=== PATIENT | male | born 1985 | race African-American/Black ===

== ENCOUNTER 2016-08-02 20:52 | Emergency (ER) | payer BC ==
--- NOTE | 2016-08-02 21:01 | ER Document Report ---
ED Medical Screen (RME) - General Stated Complaint: LEFT SHOULDER PAIN Time seen by provider: 21:00 Mode of Arrival: Ambulatory Information source: Patient Notes: 31-year-old male with worsening left shoulder pain that has been chronic for a year. Motrin prescribed by his PCP at [facility] is no longer relieving the pain.. He had surgery December 2014. No recent injury. I have greeted and performed a rapid initial assessment of this patient. A comprehensive ED assessment, evaluation of the patient, analysis of test results , and completion of the medical decision making process will be contacted by additional ED providers. TRAVEL OUTSIDE OF THE [place] IN LAST 30 DAYS: No - Related Data Allergies/Adverse Reactions: No Known Allergies Allergy (Verified 08/02/16 21:02) Past Medical History - Past Medical History Cardiac Medical History: Reports: Hx Hypertension Pulmonary Medical History: Endocrine Medical History: Musculoskeltal Medical History: Reports Hx Musculoskeletal Deformity, Reports Hx Musculoskeletal Trauma Past Surgical History: Reports: Hx Cholecystectomy - 2015, Hx Orthopedic Surgery - L shoulder labrum repair, Hx Urinary Tract Surgery - Vasectomy 2011 - Immunizations Immunizations up to date: Yes Hx Diphtheria, Pertussis, Tetanus Vaccination: Yes Physical Exam - Vital signs Vitals: Temp Pulse Resp BP Pulse Ox 98.7 F 95 18 165/83 H 99 08/02/16 20:56 08/02/16 20:56 08/02/16 20:56 08/02/16 20:56 08/02/16 20:56 Course - Vital Signs Vital signs: Temp Pulse Resp BP Pulse Ox 98.7 F 95 18 165/83 H 99 08/02/16 20:56 08/02/16 20:56 08/02/16 20:56 08/02/16 20:56 08/02/16 20:56
[2016-08-02] MEDS ORDERED: CYCLOBENZAPRINE HCL 10 MG TABLET PO ONE (22:16)
[2016-08-02] MEDS ORDERED: KETOROLAC TROMETHAMINE 60 MG/2 ML SDV IM ONE (22:16)
--- NOTE | 2016-08-02 22:20 | ER Document Report ---
HPI - HPI Patient complains to provider of: shoulder pain Pain Level: 5 Context: Patient is a 31-year-old male presents emergency Department complaining of bilateral shoulder pain. Patient states he has a history of bilateral pleural labrum had been previously repaired and he is following up with his orthopedic surgeon this week. Otherwise he is complaining mostly of bilateral shoulder pain and tense muscles. States he's been taking 800 mg of Motrin every 6 hours as well as taking 5 naproxen daily. States that even with this regimen he is still in severe pain and has not been able to work his full capacity. Otherwise patient denies any other past medical history - REPRODUCTIVE Reproductive: DENIES: : Past Medical History - General Information source: Patient - Social History Smoking Status: Never Smoker Family History: CVA, DM, Hypertension, Malignancy - Maternal aunt of cancer , unknown which type. - Past Medical History Cardiac Medical History: Reports: Hx Hypertension Pulmonary Medical History: Endocrine Medical History: Renal/ Medical History: Denies: Hx Peritoneal Dialysis Musculoskeltal Medical History: Reports Hx Musculoskeletal Deformity, Reports Hx Musculoskeletal Trauma Past Surgical History: Reports: Hx Cholecystectomy - 2015, Hx Orthopedic Surgery - L shoulder labrum repair, Hx Urinary Tract Surgery - Vasectomy 2011 - Immunizations Immunizations up to date: Yes Hx Diphtheria, Pertussis, Tetanus Vaccination: Yes Hx Pneumococcal Vaccination: 07/06/00 Vertical Provider Document - CONSTITUTIONAL Agree With Documented VS: Yes General Appearance: WD/WN, No Apparent Distress - INFECTION CONTROL TRAVEL OUTSIDE OF THE [place] IN LAST 30 DAYS: No - HEENT HEENT: Atraumatic, Normocephalic - NECK Neck: Normal Inspection, Other - Full range of motion no tenderness to palpation of the cervical spine. - RESPIRATORY O2 Sat by Pulse Oximetry: 99 - CARDIOVASCULAR Pulses: Normal: Radial Notes: Capillary refill less than 2 seconds in all upper extremity digits. - MUSCULOSKELETAL/EXTREMETIES Notes: Patient has full range of motion bilaterally but with evidence of clicking and popping in bilateral shoulder joints. Bilateral trapezius inflammation.. Tense to palpation in tenderness to deep palpation.. Insurance Assistant strength 5 out of 5 bilaterally. - NEURO Level of Consciousness: Awake, Alert, Appropriate Motor/Sensory: No Motor Deficit, No Sensory Deficit - DERM Integumentary: Warm, Dry, No Rash Course - Re-evaluation Re-evalutation: 01/28/17 22:34 Patient with evidence of foreign labrum of the left shoulder. Surrounded by inflamed muscle. Given prednisone taper and muscle relaxer can follow-up with his orthopedic surgeon this week. - Vital Signs Vital signs: Temp Pulse Resp BP Pulse Ox 98.7 F 95 18 165/83 H 99 08/02/16 20:56 08/02/16 20:56 08/02/16 20:56 08/02/16 20:56 08/02/16 20:56 Discharge - Discharge Clinical Impression: Shoulder pain, bilateral Qualifiers: Chronicity: chronic Qualified Code(s): M25.512 - Pain in left shoulder Condition: Good Disposition: HOME, SELF-CARE Instructions: Warm Packs ([facility]), Ice Packs ([facility]), Use of Vbby-Any-Czodxvo Ibuprofen ([facility]), Exercise Program for the Shoulder ([facility]) Additional Instructions: Please follow-up with your orthopedic surgeon this week. Prescriptions: Cyclobenzaprine HCl [Flexeril 10 mg Tablet] 10 mg PO TIDP PRN #15 tab PRN Reason: Meloxicam [Mobic 15 mg Tablet] 15 mg PO DAILY #30 tablet Prednisone 5 mg PO ASDIR #1 tab.ds.pk Forms: Elevated Blood Pressure
[2016-08-02 22:35] VITALS: BP 134/84
== END 2016-08-02 22:34 | disposition home or self-care (01) ==
LOC: ER 20:52
DX: M25.512 Pain in left shoulder (principal); I10 Essential (primary) hypertension; Z90.49 Acquired absence of other specified parts of digestive tract
CPT/HCPCS: 96372; 99283; J1885

== ENCOUNTER 2016-08-22 00:43 | Emergency (ER) | payer BC ==
--- NOTE | 2016-08-22 00:58 | ER Document Report ---
ED Medical Screen (RME) - General Stated Complaint: PAIN IN SCROTUM Time seen by provider: 00:56 Mode of Arrival: Ambulatory Information source: Patient Notes: 31-year-old male presents to ED for scrotal pain bilaterally. Said it started on the left side and is now to both sides. Denies any change in color states told him that they were larger. States he had a vasectomy for 5 years ago. States he sometimes goes to the gym and lifts weights that he has not lifted weights in at least 2 weeks before this started. I have greeted and performed a rapid initial assessment of this patient. A comprehensive ED assessment and evaluation of the patient, analysis of test results and completion of medical decision making process will be conducted by an additional ED providers. TRAVEL OUTSIDE OF THE [place] IN LAST 30 DAYS: No - Related Data Allergies/Adverse Reactions: No Known Allergies Allergy (Verified 08/02/16 21:02) Past Medical History - Past Medical History Cardiac Medical History: Reports: Hx Hypertension Pulmonary Medical History: Endocrine Medical History: Renal/ Medical History: Denies: Hx Peritoneal Dialysis Musculoskeltal Medical History: Reports Hx Musculoskeletal Deformity, Reports Hx Musculoskeletal Trauma Past Surgical History: Reports: Hx Cholecystectomy - 2015, Hx Orthopedic Surgery - L shoulder labrum repair, Hx Urinary Tract Surgery - Vasectomy 2011 - Immunizations Immunizations up to date: Yes Hx Diphtheria, Pertussis, Tetanus Vaccination: Yes
[2016-08-22 01:35] LABS: APPEARANCE,URINE CLEAR; BILIRUBIN,URINE NEGATIVE (NEGATIVE); GLUCOSE, URINE NEGATIVE (NEGATIVE); KETONES,URINE NEGATIVE (NEGATIVE); LEUKOCYTE ESTERASE,URINE NEGATIVE (NEGATIVE); NITRITE,URINE NEGATIVE (NEGATIVE); PROTEIN,URINE NEGATIVE (NEGATIVE); URINE SPECIFIC GRAVITY 1.029; UROBILINOGEN,URINE NEGATIVE mg/dL (<2.0)
[2016-08-22 03:11] LABS: CHLAM PCR NOT DETECTED (NOT DETECT)
[2016-08-22] MEDS ORDERED: IBUPROFEN 800 MG TABLET ONE (05:36)
[2016-08-22] MEDS ORDERED: IBUPROFEN 800 MG TABLET PO ONE (05:37)
[2016-08-22 05:51] VITALS: BP 139/87
--- NOTE | 2016-08-22 05:51 | ER Document Report ---
ED GI/ - General Chief Complaint: Testicular Pain Stated Complaint: TESTICULAR PAIN Time seen by provider: 05:51 Mode of Arrival: Ambulatory Information source: Patient Notes: 31-year-old male presents to ED for bilateral scrotal pain. He said it started on the left side and then now is on both sides. Patient states that has been for about a week and he has not lifted anyways for at least 2 weeks before the pain started. TRAVEL OUTSIDE OF THE [place] IN LAST 30 DAYS: No - HPI Patient complains to provider of: Testicular pain Onset: Last week - Bilateral Timing/Duration: Gradual Quality of pain: Achy, Sharp Severity at maximum: Severe Severity in ED: Moderate Pain Level: 3 Location: Left testicle, Right testicle Associated symptoms: denies: Fever, Urinary hesitancy, Urinary frequency, Urinary retention, Urinary urgency Exacerbated by: Movement, Walking Relieved by: Denies Similar symptoms previously: No Recently seen / treated by doctor: No - Related Data Allergies/Adverse Reactions: No Known Allergies Allergy (Verified 08/22/16 04:11) Past Medical History - General Information source: Patient - Social History Smoking Status: Current Every Day Smoker Frequency of alcohol use: None Drug Abuse: None Occupation: maintenance Lives with: Family Family History: CVA, DM, Hypertension, Malignancy - Maternal aunt of cancer , unknown which type. Patient has suicidal ideation: No Patient has homicidal ideation: No - Past Medical History Cardiac Medical History: Reports: Hx Hypertension Pulmonary Medical History: Reports: None EENT Medical History: Reports: None Neurological Medical History: Reports: None Endocrine Medical History: Reports: None Renal/ Medical History: Reports: None Malignancy Medical History: Reports None GI Medical History: Reports: None Musculoskeltal Medical History: Reports Hx Musculoskeletal Trauma Skin Medical History: Reports None Psychiatric Medical History: Reports: None Traumatic Medical History: Reports: None Infectious Medical History: Reports: None Past Surgical History: Reports: Hx Cholecystectomy - 2016, Hx Orthopedic Surgery - L shoulder labrum repair, Hx Urinary Tract Surgery - Vasectomy 2011 - Immunizations Immunizations up to date: Yes Hx Diphtheria, Pertussis, Tetanus Vaccination: Yes Hx Pneumococcal Vaccination: 07/06/00 Review of Systems - Review of Systems Constitutional: No symptoms reported EENT: No symptoms reported Cardiovascular: No symptoms reported Respiratory: No symptoms reported Gastrointestinal: No symptoms reported Genitourinary: No symptoms reported Male Genitourinary: Testicular pain. denies: Penile discharge Musculoskeletal: No symptoms reported Skin: No symptoms reported Hematologic/Lymphatic: No symptoms reported Neurological/Psychological: No symptoms reported Physical Exam - Vital signs Vitals: Temp Pulse BP Pulse Ox 97.7 F 73 155/95 H 100 08/22/16 00:57 08/22/16 00:57 08/22/16 00:57 08/22/16 00:57 Interpretation: Hypertensive - Patient has a history of high blood pressure instructed him to follow-up with his primary doctor for this elevated blood pressure - General General appearance: Appears well, Alert - HEENT Head: Normocephalic, Atraumatic Eyes: Normal Pupils: PERRL - Respiratory Respiratory status: No respiratory distress Chest status: Nontender Breath sounds: Normal Chest palpation: Normal - Cardiovascular Rhythm: Regular Heart sounds: Normal auscultation Murmur: No - Abdominal Inspection: Normal Distension: No distension Bowel sounds: Normal Tenderness: Nontender Organomegaly: No organomegaly - Genitourinary Tenderness: Nontender Cremasteric reflex: Normal Scrotum: Normal. No: Swelling, Redness, Hot to touch - Back Back: Normal, Nontender - Extremities General upper extremity: Normal inspection, Nontender, Normal color, Normal ROM , Normal temperature General lower extremity: Normal inspection, Nontender, Normal color, Normal ROM , Normal temperature, Normal weight bearing. No: Yomi's sign - Neurological Neuro grossly intact: Yes Cognition: Normal Orientation: AAOx4 [place] Coma Scale Eye Opening: Spontaneous [place] Coma Scale Verbal: Oriented Mariama Coma Scale Motor: Obeys Commands [place] Coma Scale Total: 15 Speech: Normal Motor strength normal: LUE, RUE, LLE, RLE Sensory: Normal - Psychological Associated symptoms: Normal affect, Normal mood - Skin Skin Temperature: Warm Skin Moisture: Dry Skin Color: Normal Course - Re-evaluation Re-evalutation: 08/22/16 06:[address] Renteria as well as assessment. He stated this long as there is no redness or warmth in the testicles are not hard and firm, we can discharge him with negative urine and negative ultrasound. Discussed ultrasound with patient we'll discharge patient home to follow-up with urology. Name and number for urology given to patient to call and make a follow-up appointment. - Vital Signs Vital signs: Temp Pulse Resp BP Pulse Ox 97.9 F 67 16 139/87 H 96 08/22/16 05:51 08/22/16 05:51 08/22/16 05:51 08/22/16 05:51 08/22/16 05:51 - Diagnostic Test Radiology reviewed: Image reviewed, Reports reviewed Discharge - Discharge Clinical Impression: Testicular pain, unspecified Condition: Stable Disposition: HOME, SELF-CARE Instructions: Family Physicians / Practices Additional Instructions: Testicular Pain Sometimes we can't prove the exact cause of testicle pain. Pain in the testicle can be caused by many different problems, including viral infections of the testicle, urinary tract infection, kidney stones, inflammation of the epididymis (the sac behind the testicle), hernia, dilated veins in the scrotum, or subtle injury. The most serious causes of testicular pain are tumor or twisting of the testicle. An ultrasound exam often shows what's wrong. When the initial testing doesn 't show a cause for the pain, we usually refer to a urologist. Rest. Gentle warmth may help with symptoms. It's usually helpful to wear underwear that gives good support to the testicles ("briefs" instead of "boxers "). Call the doctor or return if there is sudden worsening of pain, fever, vomiting, testicle swelling, or discoloration of the scrotum. Ibuprofen Ibuprofen is an excellent, safe drug for pain control. In addition, it has potent antiinflammatory effects which are beneficial, especially in the treatment of injuries, arthritis, or tendonitis. It's best to take ibuprofen with food. Persons with ulcer disease or allergy to aspirin should notify their physician of this before taking ibuprofen. Take the medication exactly as prescribed. Don't take additional doses unless instructed to do so by your doctor. If you develop wheezing, shortness of breath, hives, faintness, stomach pain, vomiting, or dark black stools, return for re-evaluation at once. FOLLOW-UP CARE: If you have been referred to a physician for follow-up care, call the physician s office for an appointment as you were instructed or within the next two days. If you experience worsening or a significant change in your symptoms, notify the physician immediately or return to the Emergency Department at any time for re-evaluation. Prescriptions: Ibuprofen 800 mg PO Q8HP PRN #20 tablet PRN Reason: Forms: Elevated Blood Pressure, Smoking Cessation Education, Return to Work Referrals: CADY SANCHEZ [NO LOCAL MD] - Follow up as needed
== END 2016-08-22 06:09 | disposition home or self-care (01) ==
LOC: ER 00:43
DX: N50.812 Left testicular pain (principal); N50.811 Right testicular pain; I10 Essential (primary) hypertension; F17.200 Nicotine dependence, unspecified, uncomplicated
CPT/HCPCS: 76870; 81001; 87491; 87591; 93976; 99284

== ENCOUNTER 2016-09-07 16:28 | Emergency (ER) | payer BC ==
--- NOTE | 2016-09-07 16:33 | ER Document Report ---
ED Medical Screen (RME) - General Stated Complaint: CHEST AND HEAD PAIN Time seen by provider: 16:33 Mode of Arrival: Ambulatory Notes: Patient states he has been out of his hypertension medicine for about 1 month. Primary care provider would not refill until he had lab work done. Patient states he has had this lab work done, but does not have the results. Has been having intermittent chest pain for about the last 2 weeks, has a headache, pain radiates down left arm. Patient complains of nausea and fatigue. Patient denies shortness of breath. I have greeted and performed a rapid initial assessment of this patient. A comprehensive ED assessment and evaluation of the patient, analysis of test results and completion of the medical decision making process will be conducted by additional ED providers. TRAVEL OUTSIDE OF THE [place] IN LAST 30 DAYS: No - Related Data Allergies/Adverse Reactions: No Known Allergies Allergy (Verified 09/07/16 16:41) Past Medical History - Past Medical History Cardiac Medical History: Reports: Hx Hypertension Pulmonary Medical History: Endocrine Medical History: Renal/ Medical History: Denies: Hx Peritoneal Dialysis Musculoskeltal Medical History: Reports Hx Musculoskeletal Deformity, Reports Hx Musculoskeletal Trauma Past Surgical History: Reports: Hx Cholecystectomy - 2015, Hx Orthopedic Surgery - L shoulder labrum repair, Hx Urinary Tract Surgery - Vasectomy 2011 - Immunizations Immunizations up to date: Yes Hx Diphtheria, Pertussis, Tetanus Vaccination: Yes Physical Exam - Respiratory Respiratory status: No respiratory distress Breath sounds: Normal - Cardiovascular Rhythm: Regular Heart sounds: Normal auscultation
[2016-09-07] MEDS ORDERED: ASPIRIN 81 MG TABLET, CHEWABLE PO ONE (16:44)
[2016-09-07 17:33] LABS: ABSOLUTE LYMPHOCYTES (AUTO) 2.4 10^3/uL (0.5-4.7); ABSOLUTE MONOCYTES (AUTO) 0.5 10^3/uL (0.1-1.4); ABSOLUTE NEUT (AUTO) 4.9 10^3/uL (1.7-8.2); BASOPHILS % (AUTO) 0.3 % (0-2); EOSINOPHILS % (AUTO) 0.3 % (0-6); HEMATOCRIT 40.1 % (37.9-51.0); HEMOGLOBIN 13.3 g/dL (13.5-17.0); HGB HCT DIFFERENCE -0.2; MEAN CORPUSCULAR HEMOGLOBIN 30.6 pg (27.0-33.4); MEAN CORPUSCULAR HGB CONC 33.2 g/dL (32.0-36.0); MEAN CORPUSCULAR VOLUME 92 fl (80-97); MONOCYTES % (AUTO) 5.8 % (3-13); RED BLOOD COUNT 4.35 10^6/uL (4.35-5.55); RED CELL DISTRIBUTION WIDTH 13.6 % (11.5-14.0); SEGMENTED NEUTROPHILS % (AUTO) 62.6 % (42-78); WHITE BLOOD COUNT 7.8 10^3/uL (4.0-10.5)
[2016-09-07 17:47] LABS: ALANINE AMINOTRANSFERASE 27 U/L (21-72); ALBUMIN 4.2 g/dL (3.5-5.0); ALKALINE PHOSPHATASE 59 U/L (38-126); ANION GAP 12 (5-19); ASPARTATE AMINO TRANSFERASE 22 U/L (17-59); BILIRUBIN,TOTAL 0.3 mg/dL (0.2-1.3); BLOOD UREA NITROGEN 19 mg/dL (7-20); CALCIUM 10.1 mg/dL (8.4-10.2); CARBON DIOXIDE 25 mmol/L (22-30); CHLORIDE 104 mmol/L (98-107); CREATINE KINASE 199 U/L (55-170); CREATININE RESULT 1.18 mg/dL (0.52-1.25); GLUCOSE 99 mg/dL (75-110); POTASSIUM 4.4 mmol/L (3.6-5.0); SODIUM 141.3 mmol/L (137-145); TOTAL PROTEIN 7.3 g/dL (6.3-8.2)
[2016-09-07 17:58] LABS: CREATINE KINASE MB 0.51 ng/mL (<4.55)
[2016-09-07 18:01] LABS: TROPONIN I < 0.012 ng/mL
[2016-09-07] MEDS ORDERED: LISINOPRIL 10 MG TABLET PO ONE (18:39)
--- NOTE | 2016-09-07 18:42 | ER Document Report ---
ED General - General Chief Complaint: Chest Pain Stated Complaint: CHEST AND HEAD PAIN Time seen by provider: 18:40 Mode of Arrival: Ambulatory Information source: Patient TRAVEL OUTSIDE OF THE [place] IN LAST 30 DAYS: No - HPI Patient complains to provider of: headache, neck pain, arm pain, chest pain, elevated blood pressure Onset: Other - 2-3 days Onset/Duration: Gradual, Waxing and waning Quality of pain: Achy Severity: Mild Pain Level: 1 Associated symptoms: Body/muscle aches, Chest pain, Headache Exacerbated by: Denies Relieved by: Denies Similar symptoms previously: Yes Recently seen / treated by doctor: No Notes: Patient is a 31-year-old male with a history of hypertension who is been off of his medication for approximately one month as he ran out, who presents to the emergency room complaining of elevated blood pressure is noted at home, with body aches including headache, neck ache, arm pain bilaterally, chest pain, he denies any cough, cold or congestion, no difficulty breathing, no nausea, vomiting or diarrhea - Related Data Allergies/Adverse Reactions: No Known Allergies Allergy (Verified 09/07/16 16:41) Past Medical History - General Information source: Patient - Social History Smoking Status: Unknown if Ever Smoked Chew tobacco use (# tins/day): No Frequency of alcohol use: None Drug Abuse: None Family History: CVA, DM, Hypertension, Malignancy - Maternal aunt of cancer , unknown which type. Patient has suicidal ideation: No Patient has homicidal ideation: No - Past Medical History Cardiac Medical History: Reports: Hx Hypertension Pulmonary Medical History: Endocrine Medical History: Renal/ Medical History: Denies: Hx Peritoneal Dialysis Musculoskeltal Medical History: Reports Hx Musculoskeletal Deformity, Reports Hx Musculoskeletal Trauma Past Surgical History: Reports: Hx Cholecystectomy - 2015, Hx Orthopedic Surgery - L shoulder labrum repair, Hx Urinary Tract Surgery - Vasectomy 2011 - Immunizations Immunizations up to date: Yes Hx Diphtheria, Pertussis, Tetanus Vaccination: Yes Hx Pneumococcal Vaccination: 07/06/00 Review of Systems - Review of Systems Constitutional: No symptoms reported EENT: No symptoms reported Cardiovascular: See HPI Respiratory: No symptoms reported Gastrointestinal: No symptoms reported Genitourinary: No symptoms reported Male Genitourinary: No symptoms reported Musculoskeletal: See HPI Skin: No symptoms reported Hematologic/Lymphatic: No symptoms reported Neurological/Psychological: Headaches -: Yes All other systems reviewed and negative Physical Exam - Vital signs Vitals: Temp Pulse Resp BP Pulse Ox 98.2 F 83 17 169/83 H 99 09/07/16 16:42 09/07/16 16:42 09/07/16 16:42 09/07/16 16:42 09/07/16 16:42 Interpretation: Normal - General General appearance: Appears well, Alert - HEENT Head: Normocephalic, Atraumatic Eyes: Normal Pupils: PERRL - Respiratory Respiratory status: No respiratory distress Chest status: Nontender Breath sounds: Normal Chest palpation: Normal - Cardiovascular Rhythm: Regular Heart sounds: Normal auscultation Murmur: No - Abdominal Inspection: Normal Distension: No distension Bowel sounds: Normal Tenderness: Nontender Organomegaly: No organomegaly - Back Back: Normal, Nontender - Extremities General upper extremity: Normal inspection, Nontender, Normal color, Normal ROM , Normal temperature General lower extremity: Normal inspection, Nontender, Normal color, Normal ROM , Normal temperature, Normal weight bearing. No: Yomi's sign - Neurological Neuro grossly intact: Yes Cognition: Normal Orientation: AAOx4 [place] Coma Scale Eye Opening: Spontaneous Mariama Coma Scale Verbal: Oriented Mariama Coma Scale Motor: Obeys Commands Mariama Coma Scale Total: 15 Speech: Normal Motor strength normal: LUE, RUE, LLE, RLE Sensory: Normal - Psychological Associated symptoms: Normal affect, Normal mood - Skin Skin Temperature: Warm Skin Moisture: Dry Skin Color: Normal Course - Re-evaluation Re-evalutation: 09/08/16 04:07 Lab and physical exam findings unremarkable, symptoms likely related to hypertension as patient recently ran out of his medication, he was given a prescription for this medication and advised to follow-up with his primary care provider or return if symptoms worsen, patient acknowledges understanding and agreement with this plan - Vital Signs Vital signs: Temp Pulse Resp BP Pulse Ox 98.2 F 83 15 147/85 H 98 09/07/16 16:42 09/07/16 16:42 09/07/16 18:52 09/07/16 18:52 09/07/16 18:52 - Laboratory Result Diagrams: 09/07/16 17:00 09/07/16 17:00 Laboratory results interpreted by me: 09/07/16 09/07/16 17:00 17:00 Hgb 13.3 L Creatine Kinase 199 H - Diagnostic Test Radiology reviewed: Image reviewed, Reports reviewed - EKG Interpretation by Me EKG shows normal: Sinus rhythm Rate: Normal Rhythm: NSR Discharge - Discharge Clinical Impression: Hypertension Qualifiers: Hypertension type: essential hypertension Qualified Code(s): I10 - Essential ( primary) hypertension Headache Qualifiers: Headache type: unspecified Headache chronicity pattern: acute headache Intractability: not intractable Qualified Code(s): R51 - Headache Chest pain Qualifiers: Chest pain type: other chest pain Qualified Code(s): R07.89 - Other chest pain Condition: Stable Disposition: HOME, SELF-CARE Instructions: Chest Wall Pain ([facility]), High Blood Pressure ([facility]), High Blood Pressure, Requiring Treatment ([facility]) Additional Instructions: Follow up with your primary care provider in one to 2 days. Return to the emergency room immediately if symptoms worsen or any additional concerns. Prescriptions: Lisinopril 10 mg PO DAILY #30 tablet Referrals: KELLY PRITCHETT PA [Primary Care Provider] - Follow up as needed
[2016-09-07] MEDS ORDERED: HYDROCODONE/ACETAMINOPHEN 5-325 MG 6 TAB/DSPK PO PRN (18:44)
--- NOTE | 2016-09-07 18:47 | EKG REPORT ---
SEVERITY:- NORMAL ECG - SINUS RHYTHM : Confirmed by: Ruy Garber MD 07-Sep-2016 18:46:17
[2016-09-07 18:59] VITALS: BP 147/85
== END 2016-09-07 18:59 | disposition home or self-care (01) ==
LOC: ER 16:28
DX: R07.89 Other chest pain (principal); R51 Headache; M79.1 Myalgia; I10 Essential (primary) hypertension; Z90.49 Acquired absence of other specified parts of digestive tract; Z98.52 Vasectomy status
CPT/HCPCS: 36415; 71010; 80053; 82550; 82553; 84484; 85025; 93005; 93010; 99285

== ENCOUNTER 2016-10-18 14:44 | Emergency (ER) | payer BC ==
[2016-10-18] MEDS ORDERED: TRAMADOL HCL 50 MG TABLET PO ONE (15:56)
[2016-10-18] MEDS ORDERED: ACETAMINOPHEN 325 MG TABLET PO ONE (15:56)
[2016-10-18] MEDS ORDERED: ONDANSETRON 4 MG TAB.RAPDIS PO ONE (15:56)
--- NOTE | 2016-10-18 15:57 | ER Document Report ---
HPI - HPI Patient complains to provider of: strained his back yesterday Onset: Yesterday Onset/Duration: Gradual Quality of pain: Achy, Throbbing Pain Level: 5 Context: 31-year-old male strained his low back yesterday while at work. He was bent over fixing some hinges straightened up and twisted causing a popping sensation in his low back. Today he went out and weed whacked in the yard trying to keep the area loose but when he laid down on the floor after he was done doing that he was crying out in pain and wasn't able to get up without help. No saddle anesthesia. The pain radiates to his posterior bilateral legs to the knees. Associated Symptoms: None Exacerbated by: Movement Relieved by: Denies Similar symptoms previously: No Recently seen / treated by doctor: No - ROS ROS below otherwise negative: Yes Systems Reviewed and Negative: Yes All other systems reviewed and negative - REPRODUCTIVE Reproductive: DENIES: : - DERM Skin Color: Normal Past Medical History - General Information source: Patient - Social History Smoking Status: Never Smoker Chew tobacco use (# tins/day): No Frequency of alcohol use: None Drug Abuse: None Lives with: Family Family History: CVA, DM, Hypertension, Malignancy - Maternal aunt of cancer , unknown which type. - Past Medical History Cardiac Medical History: Reports: Hx Hypertension Pulmonary Medical History: Endocrine Medical History: Renal/ Medical History: Denies: Hx Peritoneal Dialysis Musculoskeltal Medical History: Reports Hx Musculoskeletal Deformity, Reports Hx Musculoskeletal Trauma Past Surgical History: Reports: Hx Cholecystectomy - 2015, Hx Orthopedic Surgery - L shoulder labrum repair, Hx Urinary Tract Surgery - Vasectomy 2011 - Immunizations Immunizations up to date: Yes Hx Diphtheria, Pertussis, Tetanus Vaccination: Yes Hx Pneumococcal Vaccination: 07/06/00 Vertical Provider Document - CONSTITUTIONAL Agree With Documented VS: Yes Exam Limitations: No Limitations - INFECTION CONTROL TRAVEL OUTSIDE OF THE [place] IN LAST 30 DAYS: No - HEENT HEENT: Atraumatic, Normocephalic - NECK Neck: Supple - RESPIRATORY Respiratory: Breath Sounds Normal, No Respiratory Distress O2 Sat by Pulse Oximetry: 100 - CARDIOVASCULAR Cardiovascular: Regular Rate, Regular Rhythm - GI/ABDOMEN Gastrointestinal: Abdomen Soft, Abdomen Non-Tender - BACK Back: Normal Inspection Notes: Tender over bilateral lumbar muscles - MUSCULOSKELETAL/EXTREMETIES Musculoskeletal/Extremeties: MAEW, FROM, Non-Tender - NEURO Level of Consciousness: Awake, Alert, Appropriate Motor/Sensory: No Motor Deficit, No Sensory Deficit Deep Tendon Reflexes: 2+ - 2+ bilateral ankle and patellar - DERM Integumentary: Warm, Dry, No Rash Notes: Able to walk and move in the bed. Course - Vital Signs Vital signs: Temp Pulse Resp BP Pulse Ox 98.3 F 97 16 145/87 H 100 10/18/16 14:48 10/18/16 14:48 10/18/16 14:48 10/18/16 14:48 10/18/16 14:48 Discharge - Discharge Clinical Impression: Low back strain Qualifiers: Encounter type: initial encounter Qualified Code(s): S39.012A - Strain of muscle, fascia and tendon of lower back, initial encounter Condition: Good Disposition: HOME, SELF-CARE Instructions: Warm Packs ([facility]), Muscle Strain ([facility]), Low Back Pain ([facility]), Muscle Relaxers ([facility]), Ultram ([facility]) Additional Instructions: warm compress gentle stretching to er if symptoms worsen Please complete the patient satisfaction survey if you get one, and return it.. If you do not receive a survey, then you can go to the [facility] website, [email or web address] and place your comments about your very good care. Thank you very much. It was a pleasure being your medical provider today. Prescriptions: Cyclobenzaprine HCl [Flexeril 10 Mg Tablet] 10 mg PO TIDP PRN #20 tablet PRN Reason: Tramadol HCl [Ultram 50 mg Tablet] 50 mg PO ASDIR PRN #20 tablet PRN Reason: Forms: Return to Work Referrals: KELLY PRITCHETT PA [Primary Care Provider] - Follow up as needed
[2016-10-18 16:15] VITALS: BP 138/72
== END 2016-10-18 16:16 | disposition home or self-care (01) ==
LOC: ER 14:44
DX: S39.012A Strain of muscle, fascia and tendon of lower back, initial encounter (principal); X58.XXXA Exposure to other specified factors, initial encounter; Y99.0 Civilian activity done for income or pay; I10 Essential (primary) hypertension; Z98.52 Vasectomy status; Z90.49 Acquired absence of other specified parts of digestive tract
CPT/HCPCS: 99283; S0119

== ENCOUNTER 2016-11-02 09:12 | Emergency (ER) | payer BC ==
[2016-11-02] MEDS ORDERED: IBUPROFEN 800 MG TABLET PO ONE (10:30)
[2016-11-02 11:17] LABS: APPEARANCE,URINE CLEAR; BILIRUBIN,URINE NEGATIVE (NEGATIVE); GLUCOSE, URINE NEGATIVE (NEGATIVE); KETONES,URINE NEGATIVE (NEGATIVE); LEUKOCYTE ESTERASE,URINE NEGATIVE (NEGATIVE); NITRITE,URINE NEGATIVE (NEGATIVE); PROTEIN,URINE NEGATIVE (NEGATIVE); URINE SPECIFIC GRAVITY 1.027; UROBILINOGEN,URINE NEGATIVE mg/dL (<2.0)
--- NOTE | 2016-11-02 11:22 | ER Document Report ---
HPI - HPI Patient complains to provider of: low back pain Onset: Other - thursday Onset/Duration: Persistent Quality of pain: Achy Severity: Severe Pain Level: 5 Context: Patient presents emergency department with complaints of back pain since Thursday. Patient reports he is not sure what he did, he reports he was playing in the pool this past week with his kids can a long vacation. He complains of low back pain that radiates down his buttocks. Reports history of back pain in the past comes and goes. Denies other symptoms such as fever vomiting diarrhea. Denies urinary or bowel incontinence or retention. Denies numbness tingling. He reports that he does feel little uncomfortable when he voids. Associated Symptoms: None Exacerbated by: Denies Relieved by: Denies Similar symptoms previously: Yes Recently seen / treated by doctor: No - REPRODUCTIVE Reproductive: DENIES: : - DERM Skin Color: Normal Past Medical History - General Information source: Patient - Social History Smoking Status: Former Smoker Cigarette use (# per day): No Chew tobacco use (# tins/day): No Frequency of alcohol use: None Drug Abuse: None Lives with: Family Family History: CVA, DM, Hypertension, Malignancy - Maternal aunt of cancer , unknown which type. Patient has suicidal ideation: No Patient has homicidal ideation: No - Past Medical History Cardiac Medical History: Reports: Hx Hypertension Pulmonary Medical History: Endocrine Medical History: Renal/ Medical History: Denies: Hx Peritoneal Dialysis Musculoskeltal Medical History: Reports Hx Musculoskeletal Deformity, Reports Hx Musculoskeletal Trauma Past Surgical History: Reports: Hx Cholecystectomy - 2015, Hx Orthopedic Surgery - L shoulder labrum repair, Hx Urinary Tract Surgery - Vasectomy 2011 - Immunizations Immunizations up to date: Yes Hx Diphtheria, Pertussis, Tetanus Vaccination: Yes Hx Pneumococcal Vaccination: 07/06/00 Vertical Provider Document - CONSTITUTIONAL Agree With Documented VS: Yes Exam Limitations: No Limitations General Appearance: WD/WN, No Apparent Distress - INFECTION CONTROL TRAVEL OUTSIDE OF THE [place] IN LAST 30 DAYS: No - HEENT HEENT: Atraumatic, Normocephalic - NECK Neck: Normal Inspection, Supple. negative: Lymphadenopathy-Left, Lymphadenopathy-Right - RESPIRATORY Respiratory: Breath Sounds Normal, No Respiratory Distress O2 Sat by Pulse Oximetry: 99 - CARDIOVASCULAR Cardiovascular: Regular Rate - GI/ABDOMEN Gastrointestinal: Abdomen Soft, Abdomen Non-Tender - BACK Back: Normal Inspection - No obvious distress deformity no swelling to distal movement and sensation no weakness good reflexes - MUSCULOSKELETAL/EXTREMETIES Musculoskeletal/Extremeties: MAEW, FROM, Non-Tender - NEURO Level of Consciousness: Awake, Alert, Appropriate Motor/Sensory: No Motor Deficit - DERM Integumentary: Warm, Dry Course - Re-evaluation Re-evalutation: 11/02/16 11:45 UA unremarkable. Patient instructed on negative urine. Patient instructed on naproxen and muscle relaxers for the back pain. He was instructed follow up with primary care provider for recheck within 1 week. Patient verbalized understanding to all instructions. Declined a work note. Patient seemed satisfied. - Vital Signs Vital signs: Temp Pulse Resp BP Pulse Ox 98.5 F 88 20 124/76 99 11/02/16 09:19 11/02/16 09:19 11/02/16 09:19 11/02/16 09:19 11/02/16 09:19 Discharge - Discharge Clinical Impression: Low back pain, Elevated blood pressure reading Condition: Stable Disposition: HOME, SELF-CARE Instructions: Ice Packs ([facility]), Warm Packs ([facility]), Low Back Pain ([facility]), Muscle Relaxers ([facility]), Anti-Inflammatory Medication ([facility]), Family Physicians / Practices Additional Instructions: *You have been evaluated for back pain *Take medication as prescribed *Rest/alternate ice packs and warm packs, 20 minutes off, 20 minutes on *Follow up with a primary care provider within one week for recheck *Return to ED for worsening condition, changes, needs Monitor your blood pressure. Your blood pressure was elevated today. This may be because you were anxious, in pain or because you need medication. It is important to follow up with your primary care provider for full evaluation. Prescriptions: Cyclobenzaprine HCl [Flexeril 10 Mg Tablet] 10 mg PO TID #30 tablet Naproxen 500 mg PO BID #20 tablet Forms: Elevated Blood Pressure Referrals: KELLY PRITCHETT PA [Primary Care Provider] - Follow up in 3-5 days
[2016-11-02 11:59] VITALS: BP 133/76
== END 2016-11-02 11:59 | disposition home or self-care (01) ==
LOC: ER 09:12
DX: M54.5 Low back pain (principal); R03.0 Elevated blood-pressure reading, without diagnosis of hypertension; I10 Essential (primary) hypertension; Z87.891 Personal history of nicotine dependence; Z90.49 Acquired absence of other specified parts of digestive tract; Z98.52 Vasectomy status
CPT/HCPCS: 81001; 99283

== ENCOUNTER 2016-11-14 01:41 | Emergency (ER) | payer BC ==
[2016-11-14] MEDS ORDERED: ASPIRIN 81 MG TABLET, CHEWABLE PO ONE (02:04)
[2016-11-14 02:34] LABS: ABSOLUTE LYMPHOCYTES (AUTO) 3.1 10^3/uL (0.5-4.7); ABSOLUTE MONOCYTES (AUTO) 0.8 10^3/uL (0.1-1.4); ABSOLUTE NEUT (AUTO) 5.3 10^3/uL (1.7-8.2); BASOPHILS % (AUTO) 0.3 % (0-2); EOSINOPHILS % (AUTO) 0.4 % (0-6); HEMATOCRIT 39.2 % (37.9-51.0); HEMOGLOBIN 13.2 g/dL (13.5-17.0); HGB HCT DIFFERENCE 0.4; LYMPHOCYTES % (AUTO) 33.7 % (13-45); MEAN CORPUSCULAR HEMOGLOBIN 30.8 pg (27.0-33.4); MEAN CORPUSCULAR HGB CONC 33.7 g/dL (32.0-36.0); MEAN CORPUSCULAR VOLUME 91 fl (80-97); MONOCYTES % (AUTO) 8.3 % (3-13); RED CELL DISTRIBUTION WIDTH 13.7 % (11.5-14.0); SEGMENTED NEUTROPHILS % (AUTO) 57.3 % (42-78); WHITE BLOOD COUNT 9.3 10^3/uL (4.0-10.5)
[2016-11-14 02:45] LABS: ALANINE AMINOTRANSFERASE 43 U/L (21-72); ALBUMIN 4.2 g/dL (3.5-5.0); ALKALINE PHOSPHATASE 66 U/L (38-126); ANION GAP 13 (5-19); ASPARTATE AMINO TRANSFERASE 43 U/L (17-59); BILIRUBIN,DIRECT 0.4 mg/dL (0.0-0.4); BILIRUBIN,TOTAL 0.5 mg/dL (0.2-1.3); BLOOD UREA NITROGEN 22 mg/dL (7-20); CALCIUM 10.2 mg/dL (8.4-10.2); CARBON DIOXIDE 25 mmol/L (22-30); CHLORIDE 105 mmol/L (98-107); CREATINE KINASE 812 U/L (55-170); CREATININE RESULT 1.17 mg/dL (0.52-1.25); GLUCOSE 100 mg/dL (75-110); POTASSIUM 4.1 mmol/L (3.6-5.0); TOTAL PROTEIN 7.7 g/dL (6.3-8.2)
[2016-11-14 02:55] LABS: CREATINE KINASE MB 1.92 ng/mL (<4.55)
[2016-11-14 02:56] LABS: TROPONIN I < 0.012 ng/mL
--- NOTE | 2016-11-14 07:43 | ER Document Report ---
ED General - General Chief Complaint: Palpitations Stated Complaint: POSSIBLE HEART PALPITATIONS Time Seen by Provider: 11/14/16 06:09 TRAVEL OUTSIDE OF THE [place] IN LAST 30 DAYS: No - HPI Patient complains to provider of: palpitations Notes: Patient coming in for evaluation of palpitations. Patient states earlier in the evening started feeling like his heart was beating and pounding very hard. Patient states his have palpitations a past however the rate was once you experience. Patient states he does have an appointment to see his primary physician I coming [facility] denies any specific chest pain denies any nausea vomiting fevers chills recent travel shortness of breath. Patient is resting currently upon my evaluation. - Related Data Allergies/Adverse Reactions: No Known Allergies Allergy (Verified 11/14/16 01:58) Past Medical History - Social History Smoking Status: Unknown if Ever Smoked Chew tobacco use (# tins/day): No Frequency of alcohol use: None Drug Abuse: None Family History: CVA, DM, Hypertension, Malignancy - Maternal aunt of cancer , unknown which type. Patient has suicidal ideation: No Patient has homicidal ideation: No - Past Medical History Cardiac Medical History: Reports: Hx Hypertension Pulmonary Medical History: Endocrine Medical History: Renal/ Medical History: Denies: Hx Peritoneal Dialysis Musculoskeltal Medical History: Reports Hx Musculoskeletal Deformity, Reports Hx Musculoskeletal Trauma Past Surgical History: Reports: Hx Cholecystectomy - 2015, Hx Orthopedic Surgery - L shoulder labrum repair, Hx Urinary Tract Surgery - Vasectomy 2011 - Immunizations Immunizations up to date: Yes Hx Diphtheria, Pertussis, Tetanus Vaccination: Yes Hx Pneumococcal Vaccination: 07/06/00 Review of Systems - Review of Systems Constitutional: No symptoms reported EENT: No symptoms reported Cardiovascular: Palpitations Respiratory: No symptoms reported Gastrointestinal: No symptoms reported Genitourinary: No symptoms reported Male Genitourinary: No symptoms reported Musculoskeletal: No symptoms reported Skin: No symptoms reported Hematologic/Lymphatic: No symptoms reported Neurological/Psychological: No symptoms reported -: Yes All other systems reviewed and negative Physical Exam - Vital signs Vitals: Temp Pulse Resp BP Pulse Ox 98.6 F 73 18 152/84 H 100 11/14/16 02:00 11/14/16 02:00 11/14/16 02:00 11/14/16 02:00 11/14/16 02:00 Interpretation: Normal - General General appearance: Appears well, Alert - HEENT Head: Normocephalic, Atraumatic Eyes: Normal Pupils: PERRL - Respiratory Respiratory status: No respiratory distress Chest status: Nontender Breath sounds: Normal Chest palpation: Normal - Cardiovascular Rhythm: Regular Heart sounds: Normal auscultation Murmur: No - Abdominal Inspection: Normal Distension: No distension Bowel sounds: Normal Tenderness: Nontender Organomegaly: No organomegaly - Back Back: Normal, Nontender - Extremities General upper extremity: Normal inspection, Nontender, Normal color, Normal ROM , Normal temperature General lower extremity: Normal inspection, Nontender, Normal color, Normal ROM , Normal temperature, Normal weight bearing. No: Yomi's sign - Neurological Neuro grossly intact: Yes Cognition: Normal Orientation: AAOx4 Mari[place] Coma Scale Eye Opening: Spontaneous [place] Coma Scale Verbal: Oriented [place] Coma Scale Motor: Obeys Commands Mariama Coma Scale Total: 15 Speech: Normal Motor strength normal: LUE, RUE, LLE, RLE Sensory: Normal - Psychological Associated symptoms: Normal affect, Normal mood - Skin Skin Temperature: Warm Skin Moisture: Dry Skin Color: Normal Course - Re-evaluation Re-evalutation: 11/14/16 12:27 The patient has atypical chest pain/palp as the patient's chest pain is not suggestive of pulmonary embolus, cardiac ischemia, aortic dissection, or other serious etiology. Given the extremely low risk of these diagnoses further testing and evaluation for these possibilities does not appear to be indicated at this time. The patient has been instructed to return if the symptoms worsen or change in any way. 11/14/16 12:27 - Vital Signs Vital signs: Temp Pulse Resp BP Pulse Ox 98.2 F 74 20 136/76 H 100 11/14/16 07:58 11/14/16 07:58 11/14/16 07:58 11/14/16 07:58 11/14/16 07:58 - Laboratory Result Diagrams: 11/14/16 02:15 11/14/16 02:15 Laboratory results interpreted by me: 11/14/16 11/14/16 02:15 02:15 RBC 4.30 L Hgb 13.2 L BUN 22 H Creatine Kinase 812 H Discharge - Discharge Clinical Impression: Pounding heartbeat, Palpitations Condition: Good Disposition: HOME, SELF-CARE Instructions: Palpitations (Irregular or Rapid Heartrate) ([facility]) Additional Instructions: At this time your lab work monitoring strips EKG did not show any critical etiology. Unclear why you're having symptoms 9. Does not look to be signs of any infections or heart damage. Follow-up with your primary care physician for further evaluation. Please avoid all stimulants please try to decrease her stress Referrals: ORI HUNG MD [Primary Care Provider] - Follow up in 3-5 days
[2016-11-14 07:59] VITALS: BP 136/76
--- NOTE | 2016-11-14 13:46 | EKG REPORT ---
SEVERITY:- ABNORMAL ECG - SINUS TACHYCARDIA MULTIPLE VENTRICULAR PREMATURE COMPLEXES BORDERLINE T WAVE ABNORMALITIES : Confirmed by: Torin Parker 14-Nov-2016 13:45:25
== END 2016-11-14 07:58 | disposition home or self-care (01) ==
LOC: ER 01:41
DX: R00.2 Palpitations (principal); R07.89 Other chest pain; I10 Essential (primary) hypertension
CPT/HCPCS: 36415; 71010; 80053; 82550; 82553; 84484; 85025; 93005; 93010; 99285

== ENCOUNTER 2016-12-07 12:01 | Emergency (ER) | payer BC ==
--- NOTE | 2016-12-07 12:38 | ER Document Report ---
HPI - HPI Pain Level: 2 Context: Patient is a 31-year-old male comes the office complaining of burning with urination, mild bilateral flank soreness x2 weeks. The flank soreness b/l does radiate towards the groin b/l. Pt states that the dysuria intensified over the last 2 days. Pt states that he does not feel any urinary urgency or have any frequency. No urinary dribbling, difficultly/weak stream, or hesitency. He has not noticed any blood or pus. He is still eating and drinking with no problems. Denies any fever, recent/current URI or sore throat, cough, sob, dyspnea, sob, cp, palp, syncope, abd pain, n/v/d, joint pains, or rash. Pt not aware of any injury to his lower back. H/o Cholecystectomy. - ROS Notes: REVIEW OF SYSTEMS: CONSTITUTIONAL : Denies fever, chills, or sweats. Denies recent illness. EENT: Denies eye, ear, throat, or mouth pain or symptoms. Denies nasal or sinus congestion or discharge. Denies throat, tongue, or mouth swelling or difficulty swallowing. CARDIOVASCULAR: Denies chest pain. Denies palpitations or racing or irregular heart beat. Denies ankle edema. RESPIRATORY: Denies cough, cold, or chest congestion. Denies shortness of breath, difficulty breathing, or wheezing. GASTROINTESTINAL: Denies abdominal pain or distention. Denies nausea, vomiting , or diarrhea. Denies blood in vomitus, stools, or per rectum. Denies black, tarry stools. Denies constipation. GENITOURINARY: see hpi MUSCULOSKELETAL: see hpi SKIN: Denies rash, lesions or sores. HEMATOLOGIC : Denies easy bruising or bleeding. ALL OTHER SYSTEMS REVIEWED AND NEGATIVE. Dictation was performed using [employer] voice recognition software - REPRODUCTIVE Reproductive: DENIES: : - DERM Skin Color: Normal Past Medical History - Social History Smoking Status: Never Smoker Family History: CVA, DM, Hypertension, Malignancy - Maternal aunt of cancer , unknown which type. Patient has suicidal ideation: No Patient has homicidal ideation: No - Past Medical History Cardiac Medical History: Reports: Hx Hypertension Pulmonary Medical History: Endocrine Medical History: Renal/ Medical History: Denies: Hx Peritoneal Dialysis Musculoskeltal Medical History: Reports Hx Musculoskeletal Deformity, Reports Hx Musculoskeletal Trauma Past Surgical History: Reports: Hx Cholecystectomy - 2016, Hx Orthopedic Surgery - L shoulder labrum repair, Hx Urinary Tract Surgery - Vasectomy 2011 - Immunizations Immunizations up to date: Yes Hx Diphtheria, Pertussis, Tetanus Vaccination: Yes Hx Pneumococcal Vaccination: 07/06/00 Vertical Provider Document - CONSTITUTIONAL Notes: PHYSICAL EXAMINATION: GENERAL: Well-appearing, well-nourished and in no acute distress. HEAD: Atraumatic, normocephalic. EYES: Pupils equal round and reactive to light, extraocular movements intact, sclera anicteric, conjunctiva are normal. ENT: EAC clear b/l. TM's intact b/l without erythema, fluid, or perforation. Nares patent and without discharge. oropharynx clear without exudates. No tonsilar hypertrophy or erythema. Moist mucous membranes. No sinus tenderness. NECK: Normal range of motion, supple without lymphadenopathy LUNGS: Breath sounds clear to auscultation bilaterally and equal. No wheezes rales or rhonchi. HEART: Regular rate and rhythm without murmurs, rubs, gallops. ABDOMEN: Soft, nontender, nondistended abdomen. No guarding, no rebound. No masses appreciated. Normal bowel sounds present. OLGA revealed non-boggy prostate, non-tender, no masses appreciated. prostate does not seem to be enlarged. Back: No CVA tenderness bilaterally. Non-tender to T/L-spine. FROM to passive/ active. : No lesions, rash, erythema, sores, or ulcerations noted. + uncircumcised male without urethral discharge. Non-tender to palp of penis/testicles. No palpable masses. Extremities: No cyanosis, clubbing, or edema b/l. Peripheral pulses 2+. Capillary refill less than 3 seconds. NEUROLOGICAL: Cranial nerves grossly intact. Normal speech, normal gait. Normal sensory, motor exams PSYCH: Normal mood, normal affect. SKIN: Warm, Dry, normal turgor, no rashes or lesions noted. - INFECTION CONTROL TRAVEL OUTSIDE OF THE [place] IN LAST 30 DAYS: No - RESPIRATORY O2 Sat by Pulse Oximetry: 99 Course - Re-evaluation Re-evalutation: Patient is an afebrile, well-hydrated, 31-year-old male comes the office with dysuria. Vitals stable. PE uremarkable. Toradol given IM for pain control which also may help relax the ureter as well for any stone etiology. UA was negative for any leuks, nits, wbc's, or blood. UC is pending. GC/Chlamy negative. At this time, there is no acute finding that would prevent the patient from going home. Pt states that he feels well enough to go home. He does continue to have some back discomfort and dysuria despite the negative tests. I will send him home with toradol and pyridium for his symptoms. He is to check in with his PCM tomorrow or thursday for a recheck. Consider consult with Urology Return to the ED with any development of fever, worsening pain, blood in the urine, flank pain, abdominal pain, n/v, CP, shortness of breath, or trouble breathing. Patient in agreement. 12/07/16 12:43 - Vital Signs Vital signs: Temp Pulse Resp BP Pulse Ox 98.9 F 87 16 148/75 H 99 12/07/16 12:05 12/07/16 12:05 12/07/16 12:05 12/07/16 12:12/07/16 12:05 Discharge - Discharge Clinical Impression: Dysuria Condition: Stable Disposition: HOME, SELF-CARE Additional Instructions: Push fluids (i.e. water, cranberry juice) Proper hygenic technique Keep the skin clean Tylenol/ibuprofen as needed Take medications as directed Your Urine Culture is pending. You will be notified if it comes back positive. Your GC/Chlam test is negative. F/u with your PCM tomorrow or thursday for a recheck. Consider consult with a Urologist for ongoing/worsening symptoms. Return to the ED with any development of fever, worsening pain, blood in the urine, flank pain, abdominal pain, n/v, CP, shortness of breath, or trouble breathing. Prescriptions: Ketorolac Tromethamine [Toradol 10 mg Tablet] 10 mg PO TID #15 tablet Phenazopyridine HCl [Pyridium 200 mg Tablet] 200 mg PO TID #15 tablet Forms: Elevated Blood Pressure Referrals: [facility] [Provider Group] - Follow up as needed
[2016-12-07] MEDS ORDERED: KETOROLAC TROMETHAMINE 60 MG/2 ML SDV IM ONE (13:57)
[2016-12-07 14:12] LABS: APPEARANCE,URINE CLEAR; BILIRUBIN,URINE NEGATIVE (NEGATIVE); GLUCOSE, URINE NEGATIVE (NEGATIVE); KETONES,URINE NEGATIVE (NEGATIVE); LEUKOCYTE ESTERASE,URINE NEGATIVE (NEGATIVE); NITRITE,URINE NEGATIVE (NEGATIVE); PROTEIN,URINE NEGATIVE (NEGATIVE); URINE SPECIFIC GRAVITY 1.032; UROBILINOGEN,URINE NEGATIVE mg/dL (<2.0)
[2016-12-07 14:52] LABS: CHLAM PCR NOT DETECTED (NOT DETECT)
[2016-12-07 15:49] VITALS: BP 133/63
== END 2016-12-07 15:48 | disposition home or self-care (01) ==
LOC: ER 12:01
DX: R30.0 Dysuria (principal); R10.9 Unspecified abdominal pain; I10 Essential (primary) hypertension; Z90.49 Acquired absence of other specified parts of digestive tract; Z98.52 Vasectomy status
CPT/HCPCS: 99283; 96372; 87086; 81001; 87491; 87591; J1885

== ENCOUNTER 2017-01-08 20:49 | Emergency (ER) | payer BC ==
[2017-01-08 21:03] VITALS: BP 143/60
--- NOTE | 2017-01-08 22:05 | RADIOLOGY REPORT (SQ) ---
EXAM DESCRIPTION: SHOULDER LEFT 2 OR MORE VIEWS COMPLETED DATE/TIME: 01/08/2017 9:16 pm REASON FOR STUDY: shoulder pain COMPARISON: 02/14/2016 NUMBER OF VIEWS: Three views. TECHNIQUE: Internal rotation, external rotation, and Y view images acquired of the left shoulder. LIMITATIONS: None. FINDINGS: MINERALIZATION: Normal. BONES: No acute fracture or dislocation. No worrisome bone lesions. JOINTS: No dislocation. VISUALIZED LUNGS AND RIBS: No pneumothorax. No rib fracture. SOFT TISSUES: No radiopaque foreign body. OTHER: No other significant finding. IMPRESSION: NEGATIVE STUDY OF THE LEFT SHOULDER. NO RADIOGRAPHIC EVIDENCE OF ACUTE INJURY. TECHNICAL DOCUMENTATION: JOB ID: [id number] [employer]- All Rights Reserved
--- NOTE | 2017-01-08 22:26 | ER Document Report ---
ED Extremity Problem, Upper - General Chief Complaint: Shoulder Pain Stated Complaint: SHOULDER PAIN Time Seen by Provider: 01/08/17 22:23 Notes: The patient is a 31-year-old male, past medical history prior left shoulder surgery for labrum tears, presents with 1 day of worsening left shoulder pain after he was lifting heavy objects at work. He then went to go lift weights at the gym and felt a popping sensation. He took 600 mg Motrin prior to arrival and feels slightly better. Denies open wounds, numbness, tingling or any other joint aches. TRAVEL OUTSIDE OF THE [place] IN LAST 30 DAYS: No - Related Data Allergies/Adverse Reactions: No Known Allergies Allergy (Verified 12/07/16 12:06) Past Medical History - General Information source: Patient - Social History Smoking Status: Never Smoker Frequency of alcohol use: None Family History: CVA, DM, Hypertension, Malignancy - Maternal aunt of cancer , unknown which type. Patient has suicidal ideation: No Patient has homicidal ideation: No - Past Medical History Cardiac Medical History: Reports: Hx Hypertension Pulmonary Medical History: Endocrine Medical History: Renal/ Medical History: Denies: Hx Peritoneal Dialysis Musculoskeltal Medical History: Reports Hx Musculoskeletal Deformity, Reports Hx Musculoskeletal Trauma Past Surgical History: Reports: Hx Cholecystectomy - 2015, Hx Orthopedic Surgery - L shoulder labrum repair, Hx Urinary Tract Surgery - Vasectomy 2011 - Immunizations Immunizations up to date: Yes Hx Diphtheria, Pertussis, Tetanus Vaccination: Yes Hx Pneumococcal Vaccination: 07/06/00 Review of Systems - Review of Systems Notes: REVIEW OF SYSTEMS: CONSTITUTIONAL: -fevers, -chills EENT: -eye pain, -difficulty swallowing, -nasal congestion CARDIOVASCULAR:-chest pain, -syncope. RESPIRATORY: -cough, -SOB GASTROINTESTINAL: -abdominal pain, - nausea, -vomiting, -diarrhea GENITOURINARY: -dysuria, -hematuria MUSCULOSKELETAL: +left shoulder pain, -back pain, -neck pain SKIN: -rash or skin lesions. HEMATOLOGIC: -easy bruising or bleeding. LYMPHATIC: -swollen, enlarged glands. NEUROLOGICAL: -altered mental status or loss of consciousness, -headache, - neurologic symptoms PSYCHIATRIC: -anxiety, -depression. ALL OTHER SYSTEMS REVIEWED AND NEGATIVE. Physical Exam - Vital signs Vitals: Temp Pulse Resp BP Pulse Ox 98.5 F 84 16 143/60 H 98 01/08/17 20:58 07/06/17 20:58 01/08/17 20:58 01/08/17 20:58 01/08/17 20:58 - Notes Notes: PHYSICAL EXAMINATION: GENERAL: Well-appearing, well-nourished and in no acute distress. HEAD: Atraumatic, normocephalic. EYES: Pupils equal round and reactive to light, extraocular movements intact, sclera anicteric, conjunctiva are normal. ENT: nares patent, oropharynx clear without exudates. Moist mucous membranes. NECK: Normal range of motion, supple without lymphadenopathy LUNGS: Breath sounds clear to auscultation bilaterally and equal. No wheezes rales or rhonchi. HEART: Regular rate and rhythm without murmurs ABDOMEN: Soft, nontender, normoactive bowel sounds. No guarding, no rebound. No masses appreciated. EXTREMITIES: Normal range of motion, no pitting or edema. No cyanosis. No step- offs or deformities. NEUROLOGICAL: Cranial nerves grossly intact. Normal speech, normal gait. Normal sensory and motor exams. PSYCH: Normal mood, normal affect. SKIN: Warm, Dry, normal turgor, no rashes or lesions noted. Course - Re-evaluation Re-evalutation: Patient appears well. No fractures or dislocations on left shoulder x-ray. Shoulder while lifting heavy objects today. Instructed him to continue anti- inflammatories and ice with follow-up at his orthopedic surgeon. - Vital Signs Vital signs: Temp Pulse Resp BP Pulse Ox 98.5 F 84 16 143/60 H 98 01/08/17 20:58 01/08/17 20:58 01/08/17 20:58 01/08/17 20:58 01/08/17 20:58 - Diagnostic Test Radiology reviewed: Image reviewed, Reports reviewed Radiology results interpreted by me: Left shoulder x-ray: NAD Discharge - Discharge Clinical Impression: Chronic left shoulder pain Condition: Stable Disposition: HOME, SELF-CARE Additional Instructions: Arthralgia Arthralgia is pain in the joints. We use the word arthralgia to describe joint pain where there's no history of injury, no known joint disease, and the joints are normal to examination. Arthralgia can be a symptom of an acute illness, such as influenza, hepatitis, or serum sickness. Sometimes the joint pain comes before any other symptoms. Arthralgia can also be an early symptom of joint disease, such as rheumatoid arthritis or lupus. If arthralgia is accompanied by an acute illness that explains the joint pain, such as mononucleosis, no further testing needs to be done. When there's no clear reason for the pain, tests may be done to see if there's an inflammatory disease of the joints. The usual treatment is anti-inflammatory medication, such as ibuprofen. Joint aches can be soothed with a heating pad or hot compress. If joints remain painful more than a few days, you'll need testing and followup. Return if a joint becomes swollen, red, or severely painful. Referrals: MARGE WATERS, DO [ACTIVE STAFF] - Follow up as needed
== END 2017-01-08 22:39 | disposition home or self-care (01) ==
LOC: ER 20:49
DX: M25.512 Pain in left shoulder (principal); G89.29 Other chronic pain; Z79.899 Other long term (current) drug therapy
CPT/HCPCS: 99283

== ENCOUNTER 2017-06-29 10:22 | Emergency (ER) | payer BC ==
[2017-06-29 10:31] VITALS: BP 155/57
[2017-06-29] MEDS ORDERED: TETRACAINE HCL 0.5% OPH SOLN 2 ML OS ONE (11:10)
--- NOTE | 2017-06-29 11:10 | ER Document Report ---
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 Does not have left contact in at this time. Associated Symptoms: None Exacerbated by: Denies Relieved by: Denies Similar symptoms previously: No Recently seen / treated by doctor: No - ROS ROS below otherwise negative: Yes Systems Reviewed and Negative: Yes All other systems reviewed and negative - REPRODUCTIVE Reproductive: DENIES: : Past Medical History - General Information source: Patient - Social History Smoking Status: Unknown if Ever Smoked Frequency of alcohol use: None Drug Abuse: None Lives with: Family Family History: CVA, DM, Hypertension, Malignancy - Maternal aunt of cancer , unknown which type. - Past Medical History Cardiac Medical History: Reports: Hx Hypertension Pulmonary Medical History: Endocrine Medical History: Renal/ Medical History: Denies: Hx Peritoneal Dialysis Musculoskeltal Medical History: Reports Hx Musculoskeletal Deformity, Reports Hx Musculoskeletal Trauma Past Surgical History: Reports: Hx Cholecystectomy - 2015, Hx Orthopedic Surgery - L shoulder labrum repair, Hx Urinary Tract Surgery - Vasectomy 2011 - Immunizations Immunizations up to date: Yes Hx Diphtheria, Pertussis, Tetanus Vaccination: Yes Hx Pneumococcal Vaccination: 07/06/00 Vertical Provider Document - CONSTITUTIONAL Agree With Documented VS: Yes Exam Limitations: No Limitations General Appearance: No Apparent Distress - INFECTION CONTROL TRAVEL OUTSIDE OF THE [place] IN LAST 30 DAYS: No - HEENT Notes: minimal left conjunctival injection, PERRL, punctate white ulcer at 1 o'clock, shallow. Anterior chamber clear. - NECK Neck: Supple - RESPIRATORY O2 Sat by Pulse Oximetry: 100 - NEURO Level of Consciousness: Awake, Alert, Appropriate Course - Vital Signs Vital signs: Temp Pulse Resp BP Pulse Ox 98.8 F 76 20 155/57 H 100 06/29/17 10:30 06/29/17 10:30 06/29/17 10:30 06/29/17 10:30 06/29/17 10:30 Discharge - Discharge Clinical Impression: Central corneal ulcer, left eye Condition: Good Disposition: HOME, SELF-CARE Instructions: Ketorolac Tromethamine Eye Drops ([facility]), Corneal Ulceration ([facility]) , Eyedrop Use ([facility]) Additional Instructions: Ketoralac eye drop in left eye three times per day besivance eye drop in left eye three times per day see the opthamologist tomorrow for recheck, to er tonight if worse DO NOT USE CONTACT UNTIL EYE IS WELL AND CHECKED BY EYE DOCTOR Referrals: KLEVER MADDOX MD [ACTIVE STAFF] - Follow up tomorrow
[2017-06-29] MEDS ORDERED: KETOROLAC TROMETHAMINE 0.45% 4 DROP/0.4 ML DROPERETTE OS ONE (12:23)
[2017-06-29] MEDS ORDERED: BESIFLOXACIN HCL 0.6% OPH SUSP 5 ML BOTTLE OS ONE (12:24)
== END 2017-06-29 12:38 | disposition home or self-care (01) ==
LOC: ER 10:22
DX: H16.012 Central corneal ulcer, left eye (principal); H57.12 Ocular pain, left eye; I10 Essential (primary) hypertension
CPT/HCPCS: 99283

== ENCOUNTER → 2017-08-11 | Day surgery (SDC) | payer BC ==
--- NOTE | 2017-08-11 14:36 | RADIOLOGY REPORT (SQ) ---
EXAM DESCRIPTION: MRI LT UPPER JOINT WITH COMPLETED DATE/TIME: 08/11/2017 1:36 pm REASON FOR STUDY: SUPERIOR GLENOID LABRUM LESION OF LT SHOULDER (S43.432D) S43.432D SUPERIOR GLENOI D LABRUM LESION OF LEFT SHOULDER, MARISCAL COMPARISON: MRI left shoulder 11/02/2014, 04/23/2015 Left shoulder plain films 01/08/2017 TECHNIQUE: Left shoulder images acquired and stored on PACS. Oblique coronal, oblique sagittal, and axial imaging to include fat sensitive sequences as T1, water sensitive sequences as FST2/STIR, and c ontrast sensitive sequences as FST1. LIMITATIONS: None. FINDINGS: JOINT DISTENTION: Adequate distention for interpretation. No leakage of intra-articular c ontrast into the subacromial/subdeltoid bursa BONE MARROW AND CORTEX: No marrow signal abnormalities worrisome for occult fracture. Bony spurring along the undersurface of the AC joint. Subcortical cysts along the posterior half of the bony gleno id AC JOINT: Type 3 acromion. Narrowing of the subacromial space with mild AC joint bony spurring on sag ittal image 9 and coronal image 7 GLENOHUMERAL JOINT: Articular cartilage over the humeral head is intact. Significant cartilage thinn ing in the posterior half of the bony glenoid with subcortical cyst formation. No glenohumeral dislo cation/subluxation ROTATOR CUFF: Intact without significant tendinopathy, partial or full-thickness tears. No peritendin itis. LABRUM AND BICEPS LABRAL COMPLEX: Intra-articular long head biceps tendon and its superior labral att achment is intact. Anterior labrum intact. Throughout the posterior labrum, there is diffuse fragme ntation. Surgical tacks along the posterior and inferior bony glenoid are present best shown on sagi ttal images 12-14. No paralabral cysts. Appearance is similar compared to 04/23/2015 Inferior glenohumeral ligament intact ADJACENT SOFT TISSUES: No masses or nodes. OTHER: No other significant finding. IMPRESSION: Small fragmented posterior labrum with tacks from prior repair. Subcortical cyst format ion posterior half of the bony glenoid. Findings are similar compared to 2014 Mild narrowing of the subacromial space, type 3 acromion. No rotator cuff tear. TECHNICAL DOCUMENTATION: JOB ID: [id number] All Rights Reserved
--- NOTE | 2017-08-11 15:12 | RADIOLOGY REPORT (SQ) ---
EXAM DESCRIPTION: ARTHRO SHOULDER INJECTION COMPLETED DATE/TIME: 08/11/2017 1:10 pm REASON FOR STUDY: SUPERIOR GLENOID LABRUM LESION OF LT SHOULDER (S43.432D) S43.432D SUPERIOR GLENOI D LABRUM LESION OF LEFT SHOULDER, MARISCAL COMPARISON: MRI exams from 04/23/2015 FLUOROSCOPY TIME: 4 seconds 1 digital radiographic images saved to PACS. LIMITATIONS: None. PROCEDURE: Procedure, risks, benefits and alternatives explained to patient who then gave written co nsent. The posterior left shoulder was marked and a time out was called for correct procedure verific ation. Posterior entry site marked using fluoroscopic guidance. Shoulder prepped and draped using s terile technique. Local anesthesia achieved using 5 mL of 1% lidocaine injection. 22 gauge spinal n eedle introduced into the joint space under direct fluoroscopic visualization. Non-ionic contrast ins tilled to confirm intra-articular position. Dilute gadolinium solution then injected. Needle removed and entry site covered with sterile bandage. No immediate complications noted. TECHNIQUE: Digital images acquired during fluoroscopy and stored on PACS. Patient immediately take n to the MR suite for additional imaging. INJECTION LOCATION: Left posterior glenohumeral joint CONTRAST TYPE AND AMOUNT: 1 mL of Isovue-300 was injected to confirm intra-articular needle placement followed by 12 mL of dilute ProHance gadolinium for MR arthrogram IMPRESSION: SUCCESSFUL NEEDLE PLACEMENT AND INJECTION FOR LEFT SHOULDER MR ARTHROGRAM USING POSTERIO R APPROACH. COMMENT: Quality ID [id number]: Final reports for procedures using fluoroscopy that document radiation exp osure indices, or exposure time and number of fluorographic images (if radiation exposure indices are not available) TECHNICAL DOCUMENTATION: JOB ID: [id number]- All Rights Reserved
== END ==
LOC: RAD 12:31
PROVIDERS: ATTEND Orthopaedic Surgery
PROC: BP09ZZZ Plain Radiography of Left Shoulder (ICD-10-PCS; principal; 2017-08-11)
DX: S43.432D Superior glenoid labrum lesion of left shoulder, subsequent encounter (principal); M25.812 Other specified joint disorders, left shoulder; X58.XXXD Exposure to other specified factors, subsequent encounter
CPT/HCPCS: 73222; 77002; 23350; A9576

== ENCOUNTER 2017-09-27 08:51 | Emergency (ER) | payer BC ==
[2017-09-27 09:01] VITALS: BP 178/89
--- NOTE | 2017-09-27 09:18 | ER Document Report ---
ED Extremity Problem, Lower - General Chief Complaint: Toe Injury Stated Complaint: TOE PAIN Time Seen by Provider: 09/27/17 09:06 Mode of Arrival: Ambulatory Information source: Patient TRAVEL OUTSIDE OF THE [place] IN LAST 30 DAYS: No - HPI Patient complains to provider of: Pain Location: Great Toe Occurred: Last week Notes: Patient is here with complaints of left great toe pain. He states that he has a prior history of ingrown toenails. States that about a week and a half ago he dropped a glass bottle of tea onto his toe, he did not have pain immediately but started developing pain to the lateral aspect of the great toe along the nail. States that it looked like he had an ingrown nail and his cut the ingrown nail out. Since that time this area has become red swollen and painful. He denies fevers. He denies nausea, vomiting, diarrhea. He denies numbness, tingling, weakness. He does not have diabetes. Pain is worse with touching the area, better with rest. He denies any further complaints at this time. - Related Data Allergies/Adverse Reactions: No Known Allergies Allergy (Verified 12/07/16 12:06) Past Medical History - Social History Smoking Status: Never Smoker Chew tobacco use (# tins/day): No Frequency of alcohol use: None Drug Abuse: None Family History: CVA, DM, Hypertension, Malignancy - Maternal aunt of cancer , unknown which type. Patient has suicidal ideation: No Patient has homicidal ideation: No - Past Medical History Cardiac Medical History: Reports: Hx Hypertension Pulmonary Medical History: Endocrine Medical History: Renal/ Medical History: Denies: Hx Peritoneal Dialysis Musculoskeltal Medical History: Reports Hx Musculoskeletal Deformity, Reports Hx Musculoskeletal Trauma Past Surgical History: Reports: Hx Cholecystectomy - 2015, Hx Orthopedic Surgery - L shoulder labrum repair, Hx Urinary Tract Surgery - Vasectomy 2011 - Immunizations Immunizations up to date: Yes Hx Diphtheria, Pertussis, Tetanus Vaccination: Yes Hx Pneumococcal Vaccination: 07/06/00 Review of Systems - Review of Systems -: Yes All other systems reviewed and negative Physical Exam - Vital signs Vitals: Temp Pulse Resp BP Pulse Ox 98.0 F 92 16 178/89 H 98 09/27/17 08:56 09/27/17 08:56 09/27/17 08:56 09/27/17 08:56 09/27/17 08:56 - Notes Notes: GENERAL: alert, cooperative, nontoxic, no distress. HEAD: normocephalic, atraumatic EYES: conjunctiva pink without discharge, no external redness or swelling. EARS: no external swelling, no external redness NOSE: atraumatic, no external swelling MOUTH/THROAT: mucous membranes moist and pink NECK: soft, supple, full range of motion, no meningismus. CHEST: no distress, lungs clear and equal throughout. No wheezing, rales, rhonchi. CARDIAC: regular rate and rhythm, no murmur, normal capillary refill, normal pulses. BACK: full range of motion, no CVA tenderness. EXTREMITIES: full range of motion of all extremities. Evidence of prior ingrown toenail to the lateral aspect of the left great toe. No toenail in this area at this time, but there is swelling, redness, tenderness along this area. There is no purulent area or paronychia. There is no redness of the foot. Full range of motion of the great toe. No significant tenderness to palpation of the toe other than along the nail. Normal pulse and sensation. Normal cap refill. NEURO: alert and oriented 3, no focal deficits, full range of motion of all extremities. PYSCH: appropriate mood, affect. Patient is cooperative. SKIN: pink, warm, dry, no rash. Course - Re-evaluation Re-evalutation: 09/27/17 09:18 Patient is nontoxic appearing stable vitals. Here with left great toe pain. He has a prior history of ingrown toenails. He states that he also dropped a bottle of tea on his toe about a week and a half ago. States that he did not have any significant pain aside from a long side where the nail is. His cut the ingrown nail out and now he has some redness and swelling along that aspect of the nail consistent with infection. There is no paronychia or drainable collection. No significant cellulitis. Normal cap refill and sensation. It is unlikely that he has a toe fracture, but I did offer an x-ray due to the fact that he dropped a bottle in his toe week and a half ago. The patient declined at this time. At this point I will discharge him home with a prescription for Keflex and Ultram. He was instructed to soak his foot in warm soapy water. Follow-up with podiatry at the next available appointment. Follow -up sooner for increasing pain, fever, numbness, tingling, weakness, drainage, any further concerns. The patient's emergency department workup and current diagnosis were explained to the patient and or family. Follow-up instructions were provided. Medications if prescribed were discussed. Instructions for when to return to the emergency department including specific worrisome symptoms were discussed with the patient and/or family. Patient is noted to have an elevated blood pressure during today's visit, he has a prior history of hypertension and is currently on lisinopril. He has no hypertensive symptoms at this time. - Vital Signs Vital signs: Temp Pulse Resp BP Pulse Ox 98.0 F 92 16 178/89 H 98 09/27/17 08:56 09/27/17 08:56 09/27/17 08:56 09/27/17 08:56 09/27/17 08:56 Discharge - Discharge Clinical Impression: Ingrown toenail of left foot with infection Condition: Stable Disposition: HOME, SELF-CARE Instructions: Ingrown Nail ([facility]) Additional Instructions: Take medication as prescribed. Soak her foot in warm soapy water. Follow-up with podiatry at the next available appointment. Follow-up sooner for worsening pain, high fever, redness, drainage, any further concerns. Your blood pressure was elevated during today's visit. Have this rechecked with your doctor. The medication you were prescribed today may cause drowsiness. Do not drive or operate heavy machinery while taking this medication. Prescriptions: Tramadol HCl [Ultram 50 mg Tablet] 50 mg PO Q6HP PRN #12 tablet PRN Reason: Cephalexin Monohydrate [Keflex 500 mg Capsule] 500 mg PO Q6H 10 Days #40 capsule Forms: Elevated Blood Pressure, Smoking Cessation Education Referrals: [facility] [Provider Group] - Follow up as needed CHARLENE DUARTE DPM [ACTIVE STAFF] - Follow up as needed CARTER BHATIA DPM [ACTIVE STAFF] - Follow up as needed EARNEST CLEMENTE DPM [ACTIVE STAFF] - Follow up as needed YESSICA LI DPM [ACTIVE STAFF] - Follow up as needed KENAN DE LA CRUZ DPM [NO LOCAL MD] - Follow up as needed ALFRED WASHINGTON DPM [NO LOCAL MD] - Follow up as needed
== END 2017-09-27 09:30 | disposition home or self-care (01) ==
LOC: ER 08:51
DX: L60.0 Ingrowing nail (principal); L03.032 Cellulitis of left toe; I10 Essential (primary) hypertension
CPT/HCPCS: 99283

== ENCOUNTER 2017-10-17 19:59 | Emergency (ER) | payer BC ==
[2017-10-17] MEDS ORDERED: KETOROLAC TROMETHAMINE 60 MG/2 ML SDV IM ONE (20:37)
[2017-10-17 21:37] LABS: APPEARANCE,URINE CLEAR; BILIRUBIN,URINE NEGATIVE (NEGATIVE); COLOR,URINE YELLOW; GLUCOSE, URINE NEGATIVE (NEGATIVE); KETONES,URINE NEGATIVE (NEGATIVE); LEUKOCYTE ESTERASE,URINE NEGATIVE (NEGATIVE); NITRITE,URINE NEGATIVE (NEGATIVE); PROTEIN,URINE NEGATIVE (NEGATIVE); URINE SPECIFIC GRAVITY 1.031; UROBILINOGEN,URINE NEGATIVE mg/dL (<2.0)
--- NOTE | 2017-10-17 23:08 | RADIOLOGY REPORT (SQ) ---
EXAM DESCRIPTION: RIBS RIGHT W/PA CHEST CLINICAL HISTORY: 32 years, Male, PAIN, BENT OVER AND FELT SHARP PAIN COMPARISON: None. NUMBER OF VIEWS: 4 FINDINGS: Normal lung volume, clear parenchyma, normal cardiac silhouette, and intact bony thorax. No displaced right rib fracture. No pneumothorax. IMPRESSION: No acute cardiopulmonary findings.
--- NOTE | 2017-10-17 23:10 | ER Document Report ---
HPI - HPI Patient complains to provider of: Right sided rib pain and back Onset: This afternoon Onset/Duration: Sudden Quality of pain: Achy, Sharp Severity: Severe Pain Level: 5 Context: Patient states that he bent over today and felt sharp pain to his right posterior ribs. Shortly afterwards he started having muscle spasms in that area. Denies dysuria. Associated Symptoms: Hurts to breath. denies: Shortness of breath Exacerbated by: Movement Relieved by: Denies Similar symptoms previously: No Recently seen / treated by doctor: No - ROS ROS below otherwise negative: Yes Systems Reviewed and Negative: Yes All other systems reviewed and negative - CARDIOVASCULAR Cardiovascular: DENIES: Chest pain - RESPIRATORY Respiratory: REPORTS: Trouble Breathing - Pain to right post. ribs - GASTROINTESTINAL Gastrointestinal: DENIES: Abdominal Pain - URINARY Urinary: DENIES: Dysuria - MUSCULOSKELETAL Musculoskeletal: REPORTS: Back Pain - DERM Skin Color: Normal Past Medical History - General Information source: Patient - Social History Smoking Status: Never Smoker Frequency of alcohol use: None Drug Abuse: None Lives with: Spouse/Significant other Family History: CVA, DM, Hypertension, Malignancy - Maternal aunt of cancer , unknown which type. Patient has suicidal ideation: No Patient has homicidal ideation: No - Past Medical History Cardiac Medical History: Reports: Hx Hypertension Pulmonary Medical History: Endocrine Medical History: Musculoskeltal Medical History: Reports Hx Musculoskeletal Deformity, Reports Hx Musculoskeletal Trauma, Reports Other - Chronic pain Past Surgical History: Reports: Hx Cholecystectomy - 2015, Hx Orthopedic Surgery - L shoulder labrum repair, Hx Urinary Tract Surgery - Vasectomy 2011 - Immunizations Immunizations up to date: Yes Hx Diphtheria, Pertussis, Tetanus Vaccination: Yes Hx Pneumococcal Vaccination: 07/06/00 Vertical Provider Document - CONSTITUTIONAL Agree With Documented VS: Yes Exam Limitations: No Limitations General Appearance: WD/WN, No Apparent Distress - INFECTION CONTROL TRAVEL OUTSIDE OF THE [place] IN LAST 30 DAYS: No - HEENT HEENT: Atraumatic, Normocephalic - RESPIRATORY Respiratory: Breath Sounds Normal, No Respiratory Distress. negative: Rhonchi, Wheezing Notes: Patient tender over right posterior lower ribs. 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 [place]'s substance reporting system reviewed , patient is a patient of pain management here in [place]. He has been seen several times here in the emergency room for painful conditions this month. Patient states that he still has pain medications at home. - Vital Signs Vital signs: Temp Pulse Resp BP Pulse Ox 98.6 F 111 H 20 147/80 H 97 10/17/17 20:04 10/17/17 20:04 10/17/17 20:04 10/17/17 20:04 10/17/17 20:04 - Laboratory Laboratory results interpreted by me: 10/17/17 21:23 Urine Ascorbic Acid 40 H Discharge - Discharge Clinical Impression: Strain of muscle and tendon of back wall of thorax, initial encounter Condition: Good Disposition: HOME, SELF-CARE Instructions: Ice Packs ([facility]), Muscle Strain ([facility]), Warm Packs ([facility]) Additional Instructions: Baclofen as prescribed for muscle tightness OTC Ibuprofen 3 times a day, take with food for pain Take Percocet that you already have at home for pain if not controlled with baclofen and ibuprofen Ice or heat packs to area No heavy lifting Follow-up with your primary care provider Thursday for recheck Return as needed Prescriptions: Baclofen [Baclofen 10 mg Tablet] 10 mg PO TID #30 tablet
[2017-10-17] MEDS ORDERED: BACLOFEN 20 MG TABLET PO ONE (23:12)
[2017-10-17 23:28] VITALS: BP 142/89
== END 2017-10-17 23:28 | disposition home or self-care (01) ==
LOC: ER 19:59
DX: S29.012A Strain of muscle and tendon of back wall of thorax, initial encounter (principal); X58.XXXA Exposure to other specified factors, initial encounter; R07.1 Chest pain on breathing; E86.0 Dehydration; Z90.49 Acquired absence of other specified parts of digestive tract
CPT/HCPCS: 99283; 96372; 81001; 71101; J1885; J3490

== ENCOUNTER 2018-09-10 10:38 | Emergency (ER) | payer BC ==
[2018-09-10] MEDS ORDERED: RINGERS SOLUTION,LACTATED 1,000 ML IV ONE (11:10)
--- NOTE | 2018-09-10 11:11 | ER Document Report ---
ED Medical Screen (RME) - General Chief Complaint: Abdominal Pain Stated Complaint: STOMACH PAINS Time Seen by Provider: 09/10/18 11:05 Mode of Arrival: Ambulatory Information source: Patient Notes: This is a 33-year-old man who presents to the emergency room with abdominal pain, nausea, vomiting and diarrhea. She states his symptoms have been worsening over the past 5 days. He does have a history of hypertension is on lisinopril 5 mg daily. Past surgical history includes a vasectomy, cholecystectomy, orthopedic. He is not allergic to any medicines TRAVEL OUTSIDE OF THE [place] IN LAST 30 DAYS: No - Related Data Allergies/Adverse Reactions: No Known Allergies Allergy (Verified 09/10/18 10:39) Past Medical History - Social History Chew tobacco use (# tins/day): No Frequency of alcohol use: None Drug Abuse: None - Past Medical History Cardiac Medical History: Reports: Hx Hypertension Pulmonary Medical History: Endocrine Medical History: Renal/ Medical History: Denies: Hx Peritoneal Dialysis Musculoskeltal Medical History: Reports Hx Musculoskeletal Deformity, Reports Hx Musculoskeletal Trauma Past Surgical History: Reports: Hx Cholecystectomy - 2015, Hx Orthopedic Surgery - L shoulder x2, Hx Urinary Tract Surgery - Vasectomy 2011 - Immunizations Immunizations up to date: Yes Hx Diphtheria, Pertussis, Tetanus Vaccination: Yes Physical Exam - Vital signs Vitals: Temp Pulse Resp BP Pulse Ox 98.5 F 66 16 161/91 H 98 09/10/18 10:41 09/10/18 10:41 09/10/18 10:41 09/10/18 10:41 09/10/18 10:41 Course - Vital Signs Vital signs: Temp Pulse Resp BP Pulse Ox 98.5 F 66 16 161/91 H 98 09/10/18 10:41 09/10/18 10:41 09/10/18 10:41 09/10/18 10:41 09/10/18 10:41
[2018-09-10 11:35] LABS: ABSOLUTE LYMPHOCYTES (AUTO) 1.4 10^3/uL (0.5-4.7); ABSOLUTE MONOCYTES (AUTO) 0.5 10^3/uL (0.1-1.4); ABSOLUTE NEUT (AUTO) 6.8 10^3/uL (1.7-8.2); APPEARANCE,URINE CLEAR; BASOPHILS % (AUTO) 0.1 % (0-2); BILIRUBIN,URINE NEGATIVE (NEGATIVE); COLOR,URINE YELLOW; EOSINOPHILS % (AUTO) 0.3 % (0-6); GLUCOSE, URINE NEGATIVE (NEGATIVE); HEMATOCRIT 44.3 % (37.9-51.0); HEMOGLOBIN 15.3 g/dL (13.5-17.0); KETONES,URINE NEGATIVE (NEGATIVE); LEUKOCYTE ESTERASE,URINE NEGATIVE (NEGATIVE); LYMPHOCYTES % (AUTO) 15.7 % (13-45); MEAN CORPUSCULAR HEMOGLOBIN 31.4 pg (27.0-33.4); MEAN CORPUSCULAR HGB CONC 34.4 g/dL (32.0-36.0); MEAN CORPUSCULAR VOLUME 91 fl (80-97); MONOCYTES % (AUTO) 6.1 % (3-13); NITRITE,URINE NEGATIVE (NEGATIVE); PLATELET COUNT 215 10^3/uL (150-450); PROTEIN,URINE NEGATIVE (NEGATIVE); RED BLOOD COUNT 4.85 10^6/uL (4.35-5.55); RED CELL DISTRIBUTION WIDTH 14.2 % (11.5-14.0); SEGMENTED NEUTROPHILS % (AUTO) 77.8 % (42-78); TOTAL CELLS COUNTED % (AUTO) 100 %; URINE SPECIFIC GRAVITY 1.023; WHITE BLOOD COUNT 8.7 10^3/uL (4.0-10.5)
[2018-09-10 12:00] LABS: ALANINE AMINOTRANSFERASE 37 U/L (21-72); ALBUMIN 4.7 g/dL (3.5-5.0); ALKALINE PHOSPHATASE 85 U/L (38-126); ANION GAP 9 (5-19); ASPARTATE AMINO TRANSFERASE 40 U/L (17-59); BILIRUBIN,DIRECT 0.2 mg/dL (0.0-0.4); BILIRUBIN,TOTAL 0.4 mg/dL (0.2-1.3); BLOOD UREA NITROGEN 12 mg/dL (7-20); CALCIUM 9.9 mg/dL (8.4-10.2); CARBON DIOXIDE 27 mmol/L (22-30); CHLORIDE 104 mmol/L (98-107); GLUCOSE 97 mg/dL (75-110); LIPASE 261.9 U/L (23-300); POTASSIUM 4.6 mmol/L (3.6-5.0); SODIUM 140.1 mmol/L (137-145); TOTAL PROTEIN 8.2 g/dL (6.3-8.2)
[2018-09-10] MEDS ORDERED: KETOROLAC TROMETHAMINE INJ/PF 30 MG/1 ML SDV IV ONE (12:32)
[2018-09-10] MEDS ORDERED: PROMETHAZINE HCL INJ 25 MG/1 ML VIAL IV ONE (12:32)
--- NOTE | 2018-09-10 14:00 | ER Document Report ---
ED GI/ - General Chief Complaint: Abdominal Pain Stated Complaint: STOMACH PAINS Time Seen by Provider: 09/10/18 11:05 Primary Care Provider: EMMANUEL XIE MD [ACTIVE STAFF] - Follow up as needed Mode of Arrival: Ambulatory Information source: Patient Notes: Patient is a 33-year old male who presents to the ER today for 4 months of abdominal cramping diffusely and dark color to his urine. Patient does not her gallbladder. Patient admits to 5 days of nausea, vomiting and diarrhea. Patient admits to body aches and chills along with it, denies any fever that he knows of. Patient has not seen a GI specialist for his abdominal cramping. He denies any localization to the abdominal pain. TRAVEL OUTSIDE OF THE [place] IN LAST 30 DAYS: No - Related Data Allergies/Adverse Reactions: No Known Allergies Allergy (Verified 09/10/18 10:39) Past Medical History - General Information source: Patient - Social History Smoking Status: Never Smoker Chew tobacco use (# tins/day): No Frequency of alcohol use: None Drug Abuse: None Family History: CVA, DM, Hypertension, Malignancy - Maternal aunt of cancer, unknown which type. Patient has suicidal ideation: No Patient has homicidal ideation: No - Past Medical History Cardiac Medical History: Reports: Hx Hypertension Pulmonary Medical History: Endocrine Medical History: Renal/ Medical History: Denies: Hx Peritoneal Dialysis Musculoskeletal Medical History: Reports Hx Musculoskeletal Deformity, Reports Hx Musculoskeletal Trauma Past Surgical History: Reports: Hx Cholecystectomy - 2016, Hx Orthopedic Surgery - L shoulder x2, Hx Urinary Tract Surgery - Vasectomy 2012 - Immunizations Immunizations up to date: Yes Hx Diphtheria, Pertussis, Tetanus Vaccination: Yes Hx Pneumococcal Vaccination: 07/06/00 Review of Systems - Review of Systems Constitutional: See HPI EENT: No symptoms reported Cardiovascular: No symptoms reported Respiratory: No symptoms reported Gastrointestinal: See HPI Genitourinary: No symptoms reported Male Genitourinary: No symptoms reported Musculoskeletal: See HPI Skin: No symptoms reported Hematologic/Lymphatic: No symptoms reported Neurological/Psychological: No symptoms reported Physical Exam - Vital signs Vitals: Temp Pulse Resp BP Pulse Ox 98.5 F 66 16 161/91 H 98 09/10/18 10:41 09/10/18 10:41 09/10/18 10:41 09/10/18 10:41 09/10/18 10:41 - Notes Notes: PHYSICAL EXAMINATION: GENERAL: Well-appearing and in no acute distress. HEAD: Atraumatic, normocephalic. EYES: Pupils equal round and reactive to light, extraocular movements intact, sclera anicteric, conjunctiva are normal. NECK: Normal range of motion, supple without lymphadenopathy LUNGS: CTAB and equal. No wheezes rales or rhonchi. HEART: Regular rate and rhythm without murmurs ABDOMEN: Soft, no tenderness. No guarding, no rebound BACK: no vertebral tenderness, normal ROM GI/: no CVA tenderness EXTREMITIES: Normal range of motion, no pitting edema. No cyanosis. NEUROLOGICAL: Cranial nerves grossly intact. Normal sensory/motor exams. PSYCH: Normal mood, normal affect. SKIN: Warm, Dry, normal turgor, no rashes or lesions noted Course - Re-evaluation Re-evalutation: 09/10/18 15:28 Lab work is unremarkable today, patient will be given a GI specialist to follow- up with about months of abdominal cramping and dark urine, no evidence of infec tion today, he does have some uro-bilirubin, patient will be given Bentyl and Phenergan for his nausea and abdominal cramping. - Vital Signs Vital signs: Temp Pulse Resp BP Pulse Ox 98.5 F 66 16 161/91 H 98 09/10/18 10:41 09/10/18 10:41 09/10/18 10:41 09/10/18 10:41 09/10/18 10:41 - Laboratory Result Diagrams: 09/10/18 11:18 09/10/18 11:18 Laboratory results interpreted by me: 09/10/18 09/10/18 11:18 11:18 RDW 14.2 H Urine Urobilinogen 2.0 H Urine Ascorbic Acid 20 H Discharge - Discharge Clinical Impression: Abdominal cramping, Nausea vomiting and diarrhea Condition: Stable Disposition: HOME, SELF-CARE Instructions: Intravenous (IV) Fluids ([facility]), Viral Syndrome ([facility]) Additional Instructions: Return immediately for any new or worsening symptoms. Follow up with primary care provider, call tomorrow to make followup appointment. Prescriptions: Dicyclomine HCl [Bentyl 20 mg Tablet] 20 mg PO Q6H PRN #20 tablet PRN Reason: Promethazine HCl [Phenergan 25 mg Tablet] 25 mg PO TID PRN #30 tablet PRN Reason: Referrals: EMMANUEL XIE MD [ACTIVE STAFF] - Follow up as needed
[2018-09-10] MEDS ORDERED: DICYCLOMINE HCL 20 MG TABLET PO ONE (16:02)
[2018-09-10 16:13] VITALS: BP 137/92
== END 2018-09-10 16:11 | disposition home or self-care (01) ==
LOC: ER 10:38
DX: R10.84 Generalized abdominal pain (principal); R11.2 Nausea with vomiting, unspecified; R19.7 Diarrhea, unspecified; I10 Essential (primary) hypertension; Z90.49 Acquired absence of other specified parts of digestive tract; M79.10 Myalgia, unspecified site
CPT/HCPCS: 99283; 96361; 96374; 96375; 36415; 83690; 85025; 80053; 81001; J3490; J1885; J2550; J7120

== ENCOUNTER 2018-11-10 16:22 | Emergency (ER) | payer BC ==
[2018-11-10] MEDS ORDERED: NORMAL SALINE 1000 ML 1,000 ML IV ONE (17:29)
[2018-11-10] MEDS ORDERED: KETOROLAC TROMETHAMINE INJ/PF 30 MG/1 ML SDV IV ONE (17:29)
--- NOTE | 2018-11-10 17:31 | ER Document Report ---
ED Medical Screen (RME) - General Chief Complaint: Flank Pain Stated Complaint: BACK PAIN Time Seen by Provider: 11/10/18 17:24 Mode of Arrival: Ambulatory Information source: Patient Notes: 33-year-old male presented to ED for bilateral flank pain for a week. He states it is now coming around to the front of his abdomen. States he had some nausea vomiting and diarrhea but this is all gone. He states he does have dark urine but that is been for a while now. He is alert oriented respirations regular and unlabored speaking in full sentences. GERD he states he has a history of a labrum tear repair gallbladder resection and vasectomy. He also has high blood pressure. He is a former smoker does not drink or drugs and lives with his family. He is alert oriented respirations regular and unlabored speaking in full sentences walks with even steady gait. I have ordered blood urine IV fluids and a CT scan. I have also ordered Toradol for his discomfort. I have greeted and performed a rapid initial assessment of this patient. A comprehensive ED assessment and evaluation of the patient, analysis of test results and completion of medical decision making process will be conducted by an additional ED providers. TRAVEL OUTSIDE OF THE [place] IN LAST 30 DAYS: No - Related Data Allergies/Adverse Reactions: No Known Allergies Allergy (Verified 11/10/18 16:29) Past Medical History - Past Medical History Cardiac Medical History: Reports: Hx Hypertension Pulmonary Medical History: Endocrine Medical History: Renal/ Medical History: Denies: Hx Peritoneal Dialysis Musculoskeltal Medical History: Reports Hx Musculoskeletal Deformity, Reports Hx Musculoskeletal Trauma Past Surgical History: Reports: Hx Cholecystectomy - 2015, Hx Orthopedic Surgery - L shoulder x2, Hx Urinary Tract Surgery - Vasectomy 2011 - Immunizations Immunizations up to date: Yes Hx Diphtheria, Pertussis, Tetanus Vaccination: Yes Physical Exam - Vital signs Vitals: Temp Pulse Resp BP Pulse Ox 99.1 F 78 18 164/92 H 99 11/10/18 16:33 11/10/18 16:33 11/10/18 16:33 11/10/18 16:33 11/10/18 16:33 Course - Vital Signs Vital signs: Temp Pulse Resp BP Pulse Ox 99.1 F 78 18 164/92 H 99 11/10/18 16:33 11/10/18 16:33 11/10/18 16:33 11/10/18 16:33 11/10/18 16:33
[2018-11-10 18:57] LABS: ABSOLUTE LYMPHOCYTES (AUTO) 2.3 10^3/uL (0.5-4.7); ABSOLUTE MONOCYTES (AUTO) 0.6 10^3/uL (0.1-1.4); ABSOLUTE NEUT (AUTO) 6.2 10^3/uL (1.7-8.2); BASOPHILS % (AUTO) 0.3 % (0-2); EOSINOPHILS % (AUTO) 0.1 % (0-6); HEMATOCRIT 42.9 % (37.9-51.0); HEMOGLOBIN 14.3 g/dL (13.5-17.0); LYMPHOCYTES % (AUTO) 24.9 % (13-45); MEAN CORPUSCULAR HEMOGLOBIN 30.6 pg (27.0-33.4); MEAN CORPUSCULAR HGB CONC 33.4 g/dL (32.0-36.0); MEAN CORPUSCULAR VOLUME 92 fl (80-97); MONOCYTES % (AUTO) 6.8 % (3-13); PLATELET COUNT 211 10^3/uL (150-450); RED BLOOD COUNT 4.68 10^6/uL (4.35-5.55); RED CELL DISTRIBUTION WIDTH 14.3 % (11.5-14.0); SEGMENTED NEUTROPHILS % (AUTO) 67.9 % (42-78); TOTAL CELLS COUNTED % (AUTO) 100 %; WHITE BLOOD COUNT 9.1 10^3/uL (4.0-10.5)
--- NOTE | 2018-11-10 19:09 | RADIOLOGY REPORT (SQ) ---
EXAM DESCRIPTION: CT ABD/PELVIS NO ORAL OR IV COMPLETED DATE/TIME: 11/10/2018 6:54 pm REASON FOR STUDY: bilateral flank pain COMPARISON: CT abdomen pelvis 12/16/2015, 02/25/2015 TECHNIQUE: CT scan of the abdomen and pelvis performed without intravenous or oral contrast. Images reviewed with lung, soft tissue, and bone windows. Reconstructed coronal and sagittal MPR images revi ewed. All images stored on PACS. All CT scanners at this facility use dose modulation, iterative reconstruction, and/or weight based d osing when appropriate to reduce radiation dose to as low as reasonably achievable (ALARA). [facility]: Dose Right [facility]: CareDose [facility]: Dose Right [facility]: Teradose 4D [facility]: [employer] RADIATION DOSE: CT Rad equipment meets quality standard of care and radiation dose reduction techniq ues were employed. CTDIvol: 15.2 mGy. DLP: 849 mGy-cm.mGy. LIMITATIONS: None. FINDINGS: LOWER CHEST: No significant findings. No nodules or infiltrates. NON-CONTRASTED LIVER, SPLEEN, ADRENALS: Evaluation limited by lack of IV contrast. No identified sign ificant masses. PANCREAS: No masses. No peripancreatic inflammatory changes. GALLBLADDER: Surgically absent. RIGHT KIDNEY AND URETER: No suspicious masses. Assessment limited by lack of IV contrast. No signif icant calcifications. No hydronephrosis or hydroureter. LEFT KIDNEY AND URETER: No suspicious masses. Assessment limited by lack of IV contrast. No signifi cant calcifications. No hydronephrosis or hydroureter. AORTA AND RETROPERITONEUM: No aneurysm. No retroperitoneal masses or adenopathy. BOWEL AND PERITONEAL CAVITY: No obvious masses or inflammatory changes. No free fluid. APPENDIX: Normal. PELVIS, BLADDER, AND ABDOMINAL WALL:No abnormal masses. No free fluid. Bladder normal. BONES: No significant findings. OTHER: No other significant finding. IMPRESSION: NO SIGNIFICANT OR ACUTE PROCESS IN THE ABDOMEN OR PELVIS. COMMENT: Quality ID # [id number]: Final reports with documentation of one or more dose reduction techniques (e.g., Automated exposure control, adjustment of the mA and/or kV according to patient size, use of iterative reconstruction technique) TECHNICAL DOCUMENTATION: JOB ID: [id number] [employer]- All Rights Reserved Reading location - IP/workstation name: [email or web address]
[2018-11-10 19:11] LABS: APPEARANCE,URINE CLEAR; BILIRUBIN,URINE NEGATIVE (NEGATIVE); COLOR,URINE YELLOW; GLUCOSE, URINE NEGATIVE (NEGATIVE); KETONES,URINE TRACE mg/dL (NEGATIVE); LEUKOCYTE ESTERASE,URINE NEGATIVE (NEGATIVE); NITRITE,URINE NEGATIVE (NEGATIVE); PROTEIN,URINE NEGATIVE (NEGATIVE); URINE SPECIFIC GRAVITY 1.027
[2018-11-10 19:33] LABS: ALANINE AMINOTRANSFERASE 40 U/L (21-72); ALBUMIN 4.7 g/dL (3.5-5.0); ALKALINE PHOSPHATASE 88 U/L (38-126); ANION GAP 9 (5-19); ASPARTATE AMINO TRANSFERASE 33 U/L (17-59); BILIRUBIN,DIRECT 0.2 mg/dL (0.0-0.4); BILIRUBIN,TOTAL 0.4 mg/dL (0.2-1.3); BLOOD UREA NITROGEN 13 mg/dL (7-20); CALCIUM 10.3 mg/dL (8.4-10.2); CARBON DIOXIDE 30 mmol/L (22-30); CHLORIDE 104 mmol/L (98-107); CREATINE KINASE 292 U/L (55-170); GLUCOSE 87 mg/dL (75-110); LIPASE 134.6 U/L (23-300); POTASSIUM 4.4 mmol/L (3.6-5.0); SODIUM 142.7 mmol/L (137-145); TOTAL PROTEIN 8.3 g/dL (6.3-8.2)
--- NOTE | 2018-11-10 22:40 | ER Document Report ---
ED General - General Chief Complaint: Flank Pain Stated Complaint: BACK PAIN Time Seen by Provider: 11/10/18 17:24 Primary Care Provider: MEJIA LERMA MD [ACTIVE STAFF] - Follow up in 3-5 days Mode of Arrival: Ambulatory Notes: Patient is a pleasant 33-year-old male who presents with complaints of pain in the lower back. Pain radiates around the back around the flanks. Goes into the inguinal area. Some intermittent tingling sensation into his legs. No loss of bowel control. No urinary retention. Says pain gets worse when he is on his feet for long period time. Pain is been actually worsening over the course of a month. No fevers. No vomiting. No diarrhea. No dysuria. No other complaints at this time. He does not remember a specific incident or trauma. TRAVEL OUTSIDE OF THE [place] IN LAST 30 DAYS: No - Related Data Allergies/Adverse Reactions: No Known Allergies Allergy (Verified 11/10/18 16:29) Past Medical History - General Information source: Patient - Social History Smoking Status: Former Smoker Chew tobacco use (# tins/day): No Frequency of alcohol use: None Drug Abuse: None Family History: CVA, DM, Hypertension, Malignancy - Maternal aunt of cancer, unknown which type. Patient has suicidal ideation: No Patient has homicidal ideation: No - Past Medical History Cardiac Medical History: Reports: Hx Hypertension Pulmonary Medical History: Endocrine Medical History: Renal/ Medical History: Denies: Hx Peritoneal Dialysis Musculoskeletal Medical History: Reports Hx Musculoskeletal Deformity, Reports Hx Musculoskeletal Trauma Past Surgical History: Reports: Hx Cholecystectomy - 2016, Hx Orthopedic Surgery - L shoulder x2, Hx Urinary Tract Surgery - Vasectomy 2012 - Immunizations Immunizations up to date: Yes Hx Diphtheria, Pertussis, Tetanus Vaccination: Yes Hx Pneumococcal Vaccination: 07/06/00 Review of Systems - Review of Systems Notes: My Normal Review Basic REVIEW OF SYSTEMS: CONSTITUTIONAL : Denies fever, chills, or sweats. Denies recent illness. CARDIOVASCULAR: Denies chest pain. RESPIRATORY: Denies cough, cold, or chest congestion. Denies shortness of breath, difficulty breathing, or wheezing. GASTROINTESTINAL: Denies abdominal pain. Denies nausea, vomiting, or diarrhea. GENITOURINARY: Denies difficulty urinating, painful urination, burning, frequency, or blood in urine. MUSCULOSKELETAL: Low back pain SKIN: Denies rash or skin lesions. NEUROLOGICAL: Denies sensory or motor loss. ALL OTHER SYSTEMS REVIEWED AND NEGATIVE. Physical Exam - Vital signs Vitals: Temp Pulse Resp BP Pulse Ox 99.1 F 78 18 164/92 H 99 11/10/18 16:33 11/10/18 16:33 11/10/18 16:33 11/10/18 16:33 11/10/18 16:33 - Notes Notes: General Appearance: Well nourished, alert, cooperative, no acute distress, mild obvious discomfort. Vitals: reviewed, See vital signs table. Head: no swelling or tenderness to the head Eyes: PERRL, EOMI, Conjuctiva clear Mouth: No decreasd moisture Lungs: No wheezing, No rales, No rhonci, No accessory muscle use, good air exchange bilaterally. Heart: Normal rate, Regular rythm, No murmur, no rub Abdomen: Normal BS, soft, No rigidity, No abdominal tenderness, No guarding, no rebound, no abdominal masses, no organomegaly Back: Some pain to palpation of the lower back that is mainly in the left paraspinal musculature of the lumbar spine. No midline tenderness. No redness or swelling to the back or flank. Extremities: strength 5/5 in all extremities, good pulses in all extremities, no swelling or tenderness in the extremities, no edema. Skin: warm, dry, appropriate color, no rash Neuro: speech clear, oriented x 3, normal affect, responds appropriately to questions. Normal patellar reflexes bilaterally. Good strength with plantar dorsiflexion against resistance. Good distal sensation. Course - Re-evaluation Re-evalutation: 11/11/18 06:24 CT scan was ordered in triage and is negative. Patient's labs are unremarkable. Analysis negative. Suspect that he has musculoskeletal back pain with ra diation. He has no neurologic deficit so she with this. Is good strength in all extremities. No signs of central cord impingement. He has been able to urinate and have bowel movements without difficulty. I strongly encouraged him to return to ER immediately if he has loss of bowel control, urinary tension, weakness or numbness into his legs, or if he feels that he is worsening in any way. I would refer patient to primary care physician for further evaluation and possible outpatient MRI as well as referral to physical therapy. Patient agrees with plan and will be discharged home. Dictation of this chart was performed using voice recognition software; therefore, there may be some unintended grammatical errors. - Vital Signs Vital signs: Temp Pulse Resp BP Pulse Ox 98 F 72 16 180/100 H 98 11/10/18 23:15 11/10/18 23:15 11/10/18 23:15 11/10/18 23:15 11/10/18 23:15 - Laboratory Result Diagrams: 11/10/18 18:37 11/10/18 18:37 Laboratory results interpreted by me: 11/10/18 11/10/18 11/10/18 18:37 18:37 18:37 RDW 14.3 H Calcium 10.3 H Creatine Kinase 292 H Total Protein 8.3 H Urine Ketones TRACE H Urine Urobilinogen 2.0 H Urine Ascorbic Acid 40 H Discharge - Discharge Clinical Impression: Back pain Qualifiers: Back pain location: low back pain Chronicity: chronic Back pain laterality: bilateral Sciatica presence: unspecified whether sciatica present Qualified Code(s): M54.5 - Low back pain Condition: Good Disposition: HOME, SELF-CARE Additional Instructions: I suspect the pain in your back is coming from a musculoskeletal issue in her back. This could be related to a pinched nerve or bulging disc. Currently you do not have any signs of severe central cord impingement therefore you do not need emergent surgery; however, it is very important that you return to ER if you have any symptoms such as inability to urinate, loss of control of your bowel function, weakness into your legs, or numbness into your genital region. You should return to the ER if you have fevers or vomiting. Please follow-up with your primary care doctor for reevaluation for potential referral to physical therapy. If your symptoms continue then you may eventually need an outpatient MRI. Referrals: MEJIA LERMA MD [ACTIVE STAFF] - Follow up in 3-5 days
[2018-11-10 23:17] VITALS: BP 180/100
== END 2018-11-10 23:15 | disposition home or self-care (01) ==
LOC: ER 16:22
DX: M54.5 Low back pain (principal); G89.29 Other chronic pain; R10.9 Unspecified abdominal pain; R20.2 Paresthesia of skin; Z87.891 Personal history of nicotine dependence; I10 Essential (primary) hypertension
CPT/HCPCS: 99284; 96361; 96374; 36415; 82550; 83690; 85025; 80053; 81001; 74176; J1885; J7030

== ENCOUNTER 2019-01-20 09:54 | Emergency (ER) | payer BC ==
[2019-01-20] MEDS ORDERED: METOCLOPRAMIDE HCL 10 MG TABLET PO ONE (10:20)
[2019-01-20] MEDS ORDERED: CEFTRIAXONE INJ 250 MG VIAL IM ONE (10:20)
[2019-01-20] MEDS ORDERED: AZITHROMYCIN 250 MG TABLET PO ONE (10:20)
[2019-01-20] MEDS ORDERED: LIDOCAINE 1% INJ-PF (10 MG/ML) 30 ML SDV INJ ONE (10:20)
--- NOTE | 2019-01-20 10:23 | ER Document Report ---
ED Medical Screen (RME) - General Chief Complaint: Low Back Pain Stated Complaint: BACK PAIN Time Seen by Provider: 01/20/19 10:12 TRAVEL OUTSIDE OF THE [place] IN LAST 30 DAYS: No - HPI Notes: 01/20/19 10:21 Patient is a 33-year-old male with no significant past medical history who presents complaining of acute on chronic lower back pain that wraps around to his abdomen bilaterally x8d that he is experienced in the past and has been seen for. Patient states that he has had associated nausea with lower abdominal discomfort and burning with urination over the past couple days. Patient states that he is in a monogamous relationship with his and has not noticed any discharge or testicular pain/swelling. Denies drug allergies. Has had a surgical history of cholecystectomy. Denies any headache, fever, URI, sore throat, chest pain, syncope, cough, shortness of breath, wheeze, dyspnea, vomiting/diarrhea, loss of control of bowel or bladder, numbness/tingling, saddle anesthesia, muscle paralysis/weakness, or rash. I have treated and performed a rapid initial assessment of this patient. A comprehensive ED assessment and evaluation of the patient, analysis of test results and completion of medical decision making process will be conducted by additional ED providers. PHYSICAL EXAMINATION: GENERAL: Well-appearing, well-nourished and in no acute distress. LUNGS: Breath sounds clear to auscultation bilaterally and equal. No wheezes rales or rhonchi. HEART: Regular rate and rhythm without murmurs, rubs, gallops. ABDOMEN: Soft, nondistended abdomen. No guarding, no rebound. Normal bowel sounds present. No CVA tenderness bilaterally. + mild lower abd tenderness. Difficult to assess w/o bed (d/t triage) Musculoskeletal: LE's b/l: FROM to passive/active. Strength 5+/5. No deficits noted. No bony tenderness of extremities. Back: FROM to passive/active. Strength 5+/5. No vertebral point tenderness, stepoffs, or deformities. No other bony tenderness, erythema, swelling, or ecchymosis. SLR negative b/l. + mild tenderness to the L-paraspinal mm b/l. Mild spasming. No SI jt tenderness. No foot drop Extremities: No cyanosis, clubbing, or edema b/l. Peripheral pulses 2+. Capillary refill less than 2 seconds. NEUROLOGICAL: Normal speech, normal gait. Normal sensory, motor exams. Reflexes 2+ b/l. PSYCH: Normal mood, normal affect. SKIN: Warm, Dry, normal turgor, no rashes or lesions noted. - Related Data Allergies/Adverse Reactions: No Known Allergies Allergy (Verified 01/20/19 09:55) Past Medical History - Social History Chew tobacco use (# tins/day): No Frequency of alcohol use: None Drug Abuse: None - Past Medical History Cardiac Medical History: Reports: Hx Hypertension Pulmonary Medical History: Endocrine Medical History: Renal/ Medical History: Denies: Hx Peritoneal Dialysis Musculoskeltal Medical History: Reports Hx Musculoskeletal Deformity, Reports Hx Musculoskeletal Trauma Past Surgical History: Reports: Hx Cholecystectomy - 2015, Hx Orthopedic Surgery - L shoulder x2, Hx Urinary Tract Surgery - Vasectomy 2011 - Immunizations Immunizations up to date: Yes Hx Diphtheria, Pertussis, Tetanus Vaccination: Yes Physical Exam - Vital signs Vitals: Temp Pulse Resp BP Pulse Ox 98.2 F 67 16 155/78 H 99 01/20/19 09:58 01/20/19 09:58 01/20/19 09:58 01/20/19 09:58 01/20/19 09:58 Course - Vital Signs Vital signs: Temp Pulse Resp BP Pulse Ox 98.2 F 67 16 155/78 H 99 01/20/19 09:58 01/20/19 09:58 01/20/19 09:58 01/20/19 09:58 01/20/19 09:58
[2019-01-20 10:42] LABS: APPEARANCE,URINE CLEAR; BILIRUBIN,URINE NEGATIVE (NEGATIVE); COLOR,URINE YELLOW; GLUCOSE, URINE NEGATIVE (NEGATIVE); KETONES,URINE NEGATIVE (NEGATIVE); LEUKOCYTE ESTERASE,URINE NEGATIVE (NEGATIVE); NITRITE,URINE NEGATIVE (NEGATIVE); PROTEIN,URINE NEGATIVE (NEGATIVE); UROBILINOGEN,URINE NEGATIVE mg/dL (<2.0)
[2019-01-20 10:52] LABS: ABSOLUTE LYMPHOCYTES (AUTO) 1.9 10^3/uL (0.5-4.7); ABSOLUTE MONOCYTES (AUTO) 0.3 10^3/uL (0.1-1.4); ABSOLUTE NEUT (AUTO) 3.8 10^3/uL (1.7-8.2); BASOPHILS % (AUTO) 0.3 % (0-2); EOSINOPHILS % (AUTO) 0.4 % (0-6); HEMATOCRIT 41.7 % (37.9-51.0); HEMOGLOBIN 13.9 g/dL (13.5-17.0); LYMPHOCYTES % (AUTO) 31.3 % (13-45); MEAN CORPUSCULAR HEMOGLOBIN 30.8 pg (27.0-33.4); MEAN CORPUSCULAR HGB CONC 33.4 g/dL (32.0-36.0); MEAN CORPUSCULAR VOLUME 92 fl (80-97); MONOCYTES % (AUTO) 5.4 % (3-13); PLATELET COUNT 207 10^3/uL (150-450); RED BLOOD COUNT 4.53 10^6/uL (4.35-5.55); RED CELL DISTRIBUTION WIDTH 14.1 % (11.5-14.0); SEGMENTED NEUTROPHILS % (AUTO) 62.6 % (42-78); TOTAL CELLS COUNTED % (AUTO) 100 %; WHITE BLOOD COUNT 6.1 10^3/uL (4.0-10.5)
--- NOTE | 2019-01-20 10:54 | ER Document Report ---
HPI - HPI Patient complains to provider of: abdominal pain, dysuria Time Seen by Provider: 01/20/19 10:12 Pain Level: 3 Exacerbated by: Movement, Food Relieved by: Remaining still, Antacids Similar symptoms previously: No Recently seen / treated by doctor: No Notes: 33-year-old male With a history of hypertension and intermittent gerd, here for bilateral flank pain that radiates anteriorly for the last 8 days. He also complains of some dysuria. No hematuria or frequency. No history of UTIs before. No history of renal stones. Pain is somewhat worse with eating. He does take Aleve every day. He denies any prior gallbladder issues. no trauma or injury. no hx of diabetes or asthma. normal bms. no testicular pain/swelling, penile dc/rash/lesions, or concerns for stds. denies swelling or hx of hernias. no abd surgeries unless otherwise noted. no recent abx or steroids. hasn't taken anything for sx. no hx of gb dz, pancreatitis, gi bleed, ulcers, ibs, or crohns. no hx of this before. no sick contacts. no uri sx. no rash. no excessive nsaid use or etoh however he has been taking aleve daily for a while. no recent illness. pain not worse with eating. denies changes in color or caliber of stool. no other associated sx. - ROS Systems Reviewed and Negative: Yes All other systems reviewed and negative - to include 10, unless mentioned in the hpi - DERM Skin Color: Normal Past Medical History - General Information source: Patient - Social History Smoking Status: Never Smoker Chew tobacco use (# tins/day): No Frequency of alcohol use: None Drug Abuse: None Family History: CVA, DM, Hypertension, Malignancy - Maternal aunt of cancer, unknown which type. Patient has suicidal ideation: No Patient has homicidal ideation: No - Past Medical History Cardiac Medical History: Reports: Hx Hypertension Pulmonary Medical History: Endocrine Medical History: Renal/ Medical History: Denies: Hx Kidney Stones, Hx Peritoneal Dialysis GI Medical History: Reports: Hx Gastroesophageal Reflux Disease - doesn't require meds chronically for this.. Denies: Hx Gastritis Musculoskeletal Medical History: Reports Hx Musculoskeletal Deformity, Reports Hx Musculoskeletal Trauma Past Surgical History: Reports: Hx Cholecystectomy - 2016, Hx Orthopedic Surgery - L shoulder x2, Hx Urinary Tract Surgery - Vasectomy 2012 - Immunizations Immunizations up to date: Yes Hx Diphtheria, Pertussis, Tetanus Vaccination: Yes Hx Pneumococcal Vaccination: 07/06/00 Vertical Provider Document - CONSTITUTIONAL Notes: >>>> PHYSICAL_EXAM: GENERAL_APPEARANCE: well_nourished, alert, cooperative, no_acute_distress, no obvious_discomfort. Pleasant, Obese, young black male,smiling, speaking in full sentences, easily sitting up, in no sign of pain or resp distress, nontoxic VITALS: reviewed, see vital signs table. HEAD: normocephalic. atraumatic. no neal signs. no raccoon eyes. EYES: PERRL, EOMI, (-)scleral icterus. NOSE: no_nasal_discharge. MOUTH: (-)decreased moisture. THROAT: no_tonsilar_inflammation/hypertrophy/exudate. no lymphadenopathy NECK: supple, no_neck_tenderness, full rom. full strength. no meningeal signs. BACK: no_back_tenderness. CHEST_WALL: no_chest_tenderness. LUNGS: no_wheezing, (-)accessory muscle use, good air exchange bilateral. HEART: normal_rate, normal_rhythm,, ABDOMEN: normal_BS, soft, abdomen-diffuse, mildly ttp in the epigastrium, (- )guarding, (-)rebound, no distension or peritoneal signs. neg murphys. neg mcburneys. neg heel strike. neg obturator. neg psoas. neg rovsign. no cva tenderness GENITALS: deferred by pt RECTAL: deferred EXTREMITIES: strength 5/5 in all_extremities, good pulses in all_extremities, no_edema, no_swelling\tenderness. full rom. normal gait. brisk cap refill. good hand assembler seat. SKIN: warm, dry, good_color, n _rash. no grossly visible overlying skin changes to suggest trauma unless otherwise noted. NEURO: motor_intact, sensory_intact. cranial nerves 2-12 intact, cerebellar fxn intact MENTAL_STATUS: normal_affect, speech_clear, oriented_X_3, responds_appropriately to questions. - INFECTION CONTROL TRAVEL OUTSIDE OF THE [place] IN LAST 30 DAYS: No Course - Re-evaluation Re-evalutation: Patient here for bilateral flank pain that radiates anteriorly for the last 8 days. Has had some dysuria. No concerns for STDs. He was treated prophylactically for gonorrhea chlamydia in triage prior to my examination. Is to resolve his Zofran GI cocktail here. His urine is completely normal however culture is pending. Advised will call with any normal culture results on his gonorrhea and Chlamydia test results come in. Serial abdominal exams remain benign. His labs are otherwise unremarkable. He is tolerating p.o. and well- appearing. Advised to avoid NSAIDs. Wayne diet. Up with PCP in 1 to 2 days. Return for any worsening symptoms. Patient understands and agrees with plan. Will discharge home with Prilosec and Zantac. vss On reexam, pt improved with tx listed. remained stable. nontoxic. well appearing. pain controlled. tolerating po. requesting to go home. case discussed with ER Attending, Dr. rodríguez, who directed and agrees with plan of care and advised no further workup indicated at this time and pt is stable for dc home with close f/u with pcp/specialist. Documentation achieved through voice recording which my lead to some occasional accidental typographical errors. Extensive efforts have been made to proof read documentation to make sure these are the least as possible. Category Date Time Status CBC WITH DIFF [HEME] Stat Lab 01/20/19 10:39 Completed [facility] PCR URINE INHOUSE [MO] Stat Lab 01/20/19 12:30 Received COMPREHENSIVE METABOLIC PANEL [CHEM] Stat Lab 01/20/19 10:39 Completed LIPASE [CHEM] Stat Lab 01/20/19 10:39 Completed URINALYSIS [URIN] Stat Lab 01/20/19 10:22 Completed URINE CULTURE [MC] Stat Lab 01/20/19 10:22 Received Azithromycin [Zithromax 250 mg Tablet] Med 01/20/19 10:20 Discontinued 1,000 mg PO NOW ONE Ceftriaxone Sodium [Rocephin Inj 250 mg Vial] Med 01/20/19 10:20 Discontinued 250 mg IM NOW ONE Lidocaine HCl [Xylocaine 2% Viscous Soln 20 ml Udcup] Med 01/20/19 11:36 Discontinued 15 ml PO NOW ONE Lidocaine HCl/Pf [Xylocaine 1% Inj-Pf (10 mg/ml) 30 ml Med 01/20/19 10:20 Discontinued Sdv] 1 ml INJ NOW ONE Mag Hydrox/Al Hydrox/Simeth [Maalox Plus Susp 30 Udcup] Med 01/20/19 11:36 Discontinued 30 ml PO NOW ONE Metoclopramide HCl [Reglan 10 mg Tablet] Med 01/20/19 10:20 Discontinued 10 mg PO NOW ONE - Vital Signs Vital signs: Temp Pulse Resp BP Pulse Ox 98.2 F 67 16 155/78 H 99 01/20/19 09:58 01/20/19 09:58 01/20/19 09:58 01/20/19 09:58 01/20/19 09:58 01/20/19 13:18 Temp Pulse Resp BP Pulse Ox 01/20/19 09:58 98.2 F 67 16 155/78 H 99 - Laboratory Result Diagrams: 01/20/19 10:39 01/20/19 10:39 Laboratory results interpreted by me: 01/20/19 10:39 RDW 14.1 H 01/20/19 13:18 Labs- Entire Visit 01/20/19 01/20/19 01/20/19 10:22 10:39 10:39 WBC 6.1 RBC 4.53 Hgb 13.9 Hct 41.7 MCV 92 MCH 30.8 MCHC 33.4 RDW 14.1 H Plt Count 207 Seg Neutrophils % 62.6 Lymphocytes % 31.3 Monocytes % 5.4 Eosinophils % 0.4 Basophils % 0.3 Absolute Neutrophils 3.8 Absolute Lymphocytes 1.9 Absolute Monocytes 0.3 Absolute Eosinophils 0.0 Absolute Basophils 0.0 Sodium 140.3 Potassium 5.1 H Chloride 106 Carbon Dioxide 28 Anion Gap 6 BUN 16 Creatinine 1.03 Est GFR ( Amer) > 60 Est GFR (Non-Af Amer) > 60 Glucose 101 Calcium 9.8 Total Bilirubin 0.4 Direct Bilirubin 0.2 Neonat Total Bilirubin Not Reportable Neonat Direct Bilirubin Not Reportable Neonat Indirect Bili Not Reportable AST 22 ALT 27 Alkaline Phosphatase 76 Total Protein 7.6 Albumin 4.4 Lipase 123.9 Urine Color YELLOW Urine Appearance CLEAR Urine pH 5.0 Ur Specific [place] 1.020 Urine Protein NEGATIVE Urine Glucose (UA) NEGATIVE Urine Ketones NEGATIVE Urine Blood NEGATIVE Urine Nitrite NEGATIVE Urine Bilirubin NEGATIVE Urine Urobilinogen NEGATIVE Ur Leukocyte Esterase NEGATIVE Urine WBC (Auto) 0 Urine RBC (Auto) 1 Urine Mucus (Auto) RARE Urine Ascorbic Acid NEGATIVE - Diagnostic Test Radiology reviewed: Image reviewed, Reports reviewed Discharge - Discharge Clinical Impression: Dysuria, Abdominal pain GERD (gastroesophageal reflux disease) Qualifiers: Esophagitis presence: esophagitis presence not specified Qualified Code(s): K21.9 - Gastro-esophageal reflux disease without esophagitis Condition: Stable Disposition: HOME, SELF-CARE Instructions: Reflux Disease (GERD) ([facility]) Additional Instructions: Follow-up with PCP 1 to 2 days. Wayne diet. Avoid NSAIDs. Drink plenty of fluids. We will call you with any abnormal results as discussed. Take the medication as prescribed. Return for any worsening symptoms. Prescriptions: Omeprazole Magnesium [Prilosec Otc] 20 mg PO DAILY #30 tablet. Ondansetron [Zofran Odt 4 mg Tablet] 1 tab PO Q8 #15 tab.meghan Ranitidine HCl [Zantac] 150 mg PO BID #30 tablet
[2019-01-20 11:13] LABS: ALANINE AMINOTRANSFERASE 27 U/L (21-72); ALBUMIN 4.4 g/dL (3.5-5.0); ALKALINE PHOSPHATASE 76 U/L (38-126); ANION GAP 6 (5-19); ASPARTATE AMINO TRANSFERASE 22 U/L (17-59); BILIRUBIN,DIRECT 0.2 mg/dL (0.0-0.4); BILIRUBIN,TOTAL 0.4 mg/dL (0.2-1.3); BLOOD UREA NITROGEN 16 mg/dL (7-20); CALCIUM 9.8 mg/dL (8.4-10.2); CARBON DIOXIDE 28 mmol/L (22-30); CHLORIDE 106 mmol/L (98-107); GLUCOSE 101 mg/dL (75-110); LIPASE 123.9 U/L (23-300); POTASSIUM 5.1 mmol/L (3.6-5.0); SODIUM 140.3 mmol/L (137-145); TOTAL PROTEIN 7.6 g/dL (6.3-8.2)
[2019-01-20] MEDS ORDERED: LIDOCAINE 2% VISCOUS SOLN 20 ML UDCUP PO ONE (11:36)
[2019-01-20] MEDS ORDERED: MAG HYDROX/AL HYDROX/SIMETH SUSP 30 ML UDCUP PO ONE (11:36)
[2019-01-20 13:54] VITALS: BP 154/83
[2019-01-20 14:19] LABS: CHLAM PCR NOT DETECTED (NOT DETECT)
== END 2019-01-20 13:54 | disposition home or self-care (01) ==
LOC: ER 09:54
DX: K21.9 Gastro-esophageal reflux disease without esophagitis (principal); R10.9 Unspecified abdominal pain; R30.0 Dysuria; I10 Essential (primary) hypertension
CPT/HCPCS: 99283; 96372; 36415; 87086; 83690; 85025; 80053; 81001; 87491; 87591; J3490 ×2; J0696

== ENCOUNTER 2019-07-30 09:42 | Emergency (ER) | payer OTHER, BC ==
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
[2019-07-30 11:30] VITALS: BP 142/92
== END 2019-07-30 11:37 | disposition home or self-care (01) ==
LOC: ER 09:42
DX: T14.8XXA Other injury of unspecified body region, initial encounter (principal); M54.5 Low back pain; M25.552 Pain in left hip; M25.551 Pain in right hip; M79.10 Myalgia, unspecified site; V89.2XXA Person injured in unspecified motor-vehicle accident, traffic, initial encounter; Y92.410 Unspecified street and highway as the place of occurrence of the external cause; I10 Essential (primary) hypertension; Z90.49 Acquired absence of other specified parts of digestive tract
CPT/HCPCS: 72110; 73522; 99283

== ENCOUNTER 2020-01-02 12:35 | Emergency (ER) | payer BC, OTHER ==
[2020-01-02 14:42] LABS: ABSOLUTE LYMPHOCYTES (AUTO) 2.2 10^3/uL (0.5-4.7); ABSOLUTE MONOCYTES (AUTO) 0.5 10^3/uL (0.1-1.4); ABSOLUTE NEUT (AUTO) 5.3 10^3/uL (1.7-8.2); BASOPHILS % (AUTO) 0.4 % (0-2); EOSINOPHILS % (AUTO) 0.2 % (0-6); HEMATOCRIT 42.8 % (37.9-51.0); HEMOGLOBIN 14.6 g/dL (13.5-17.0); LYMPHOCYTES % (AUTO) 27.1 % (13-45); MEAN CORPUSCULAR HEMOGLOBIN 31.7 pg (27.0-33.4); MEAN CORPUSCULAR HGB CONC 34.1 g/dL (32.0-36.0); MEAN CORPUSCULAR VOLUME 93 fl (80-97); MONOCYTES % (AUTO) 5.7 % (3-13); PLATELET COUNT 193 10^3/uL (150-450); RED CELL DISTRIBUTION WIDTH 13.9 % (11.5-14.0); SEGMENTED NEUTROPHILS % (AUTO) 66.6 % (42-78); TOTAL CELLS COUNTED % (AUTO) 100 %
--- NOTE | 2020-01-02 14:54 | RADIOLOGY REPORT (SQ) ---
EXAM DESCRIPTION: CHEST SINGLE VIEW IMAGES COMPLETED DATE/TIME: 01/02/2020 2:39 pm REASON FOR STUDY: shortness of breath COMPARISON: 09/07/2016 EXAM PARAMETERS: NUMBER OF VIEWS: One view. TECHNIQUE: Single frontal radiographic view of the chest acquired. RADIATION DOSE: NA LIMITATIONS: None. FINDINGS: LUNGS AND PLEURA: No opacities, masses or pneumothorax. No pleural effusion. MEDIASTINUM AND HILAR STRUCTURES: No masses. Contour normal. HEART AND VASCULAR STRUCTURES: Heart normal in size. Normal vasculature. BONES: No acute findings. HARDWARE: None in the chest. OTHER: No other significant finding. IMPRESSION: NO ACUTE RADIOGRAPHIC FINDING IN THE CHEST. TECHNICAL DOCUMENTATION: JOB ID: [id number] 2010 [employer]- All Rights Reserved Reading location - IP/workstation name: [email or web address]
[2020-01-02 15:00] LABS: ALBUMIN 4.4 g/dL (3.5-5.0); ALKALINE PHOSPHATASE 82 U/L (38-126); ANION GAP 7 (5-19); ASPARTATE AMINO TRANSFERASE 33 U/L (17-59); BILIRUBIN,TOTAL 0.4 mg/dL (0.2-1.3); BLOOD UREA NITROGEN 16 mg/dL (7-20); CALCIUM 9.7 mg/dL (8.4-10.2); CARBON DIOXIDE 26 mmol/L (22-30); CHLORIDE 106 mmol/L (98-107); GLUCOSE 95 mg/dL (75-110); POTASSIUM 4.3 mmol/L (3.6-5.0); TOTAL PROTEIN 7.7 g/dL (6.3-8.2)
[2020-01-02 15:25] LABS: INTERNATIONAL RATION (INR) 1.11; PROTHROMBIN TIME 14.3 SEC (11.4-15.4)
--- NOTE | 2020-01-02 17:36 | EKG REPORT ---
SEVERITY:- NORMAL ECG - SINUS RHYTHM : Confirmed by: Batsheva Ceballos MD 02-Jan-2020 17:35:24
--- NOTE | 2020-01-02 17:40 | ER Document Report ---
ED General - General Chief Complaint: Chest Pain Stated Complaint: CHEST PAIN Time Seen by Provider: 01/02/20 14:21 TRAVEL OUTSIDE OF THE [place] IN LAST 30 DAYS: No - HPI Notes: Chief complaint: Fatigue and chronic/recurrent breathing problems and diarrhea History of present illness: 34-year-old male with history of hypertension otherwise healthy referred here from a local urgent care with a 3 to 4-month history of recurrent symptoms including extreme fatigue, intermittent breathing problems, tightness in chest and diarrhea. Patient indicates that they took a nasal swab for COVID screening at the urgent care and told him that he should "come to the hospital right away" to be evaluated for other evidence of potential covert infection. He does not report any specific known exposure to COVID. He does not report any fever. He does not report any skin rashes. He denies any changes in his sense of taste or smell. 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 States he has been doing his work for about 3 years. His significant concern is that [place] has [place] and therefore wonders if this would greatly increase his risk of covert infection. Patient is been on lisinopril 10 mg daily for hypertension for over 10 years. He is not regularly checking his blood pressure however. Patient is a past smoker having quit over 15 years ago. He is not diabetic. He has no history of hyperlipidemia. His family history is positive for hypertension but negative for CAD. He has no personal nor family history of thromboembolic disease. He denies any known history of asthma. - Related Data Allergies/Adverse Reactions: No Known Allergies Allergy (Verified 07/30/19 10:21) Home Medications: Lisinopril Past Medical History - General Information source: [facility] - Social History Smoking Status: Former Smoker Family History: CVA, DM, Hypertension, Malignancy - Maternal aunt of cancer, unknown which type.. denies: CAD Patient has homicidal ideation: No - Past Medical History Cardiac Medical History: Reports: Hx Hypertension Pulmonary Medical History: Endocrine Medical History: Denies: Hx Diabetes Mellitus Type 1, Hx Diabetes Mellitus Type 2, Hx Hyperthyroidism, Hx Hypothyroidism Renal/ Medical History: Denies: Hx Benign Prostatic Hyperplasia, Hx End Stage Renal Disease, Hx Kidney Stones, Hx Peritoneal Dialysis GI Medical History: Reports: Hx Gastroesophageal Reflux Disease - occasional- hedoesn't require meds chronically for this.. Denies: Hx Cirrhosis, Hx Crohn's Disease, Hx Diverticulitis, Hx Gastritis, Hx Hepatitis, Hx Hiatal Hernia, Hx Irritable Bowel, Hx Liver Failure, Hx Pancreatitis, Hx Ulcer, Hx Ulcerative Colitis, Hx Colonoscopy, Hx Endoscopy Musculoskeletal Medical History: Reports Hx Arthritis, Reports Hx Musculoskeletal Deformity, Reports Hx Musculoskeletal Trauma Infectious Medical History: Denies: Hx Hepatitis Past Surgical History: Reports: Hx Cholecystectomy - 2016, Hx Orthopedic Surgery - L shoulder x2, Hx Urinary Tract Surgery - Vasectomy 2012 - Immunizations Immunizations up to date: Yes Hx Diphtheria, Pertussis, Tetanus Vaccination: Yes Hx Pneumococcal Vaccination: 07/06/00 Review of Systems - Review of Systems Notes: Constitutional: Negative for fever. HENT: Intermittent sore throat. Eyes: Negative for visual changes. Cardiovascular: Intermittent nonexertional chest tightness. Respiratory: Intermittent shortness of breath. No wheezing. No cough. No sputum production. Gastrointestinal: Intermittent diarrhea once or twice a month. Genitourinary: Negative for dysuria. Musculoskeletal: Negative for back pain. Skin: Negative for rash. Neurological: Negative for headaches, focal weakness or numbness. 10 point ROS negative except as marked above and in HPI. Physical Exam - Vital signs Vitals: Temp Pulse Resp BP Pulse Ox 99.1 F 64 16 165/93 H 100 01/02/20 12:42 01/02/20 12:42 01/02/20 12:42 01/02/20 12:42 01/02/20 12:42 - Notes Notes: GENERAL: Muscular male approximately stated age appearing in no acute distress. SKIN: Good turgor no rashes. HEAD: Normocephalic atraumatic. EYES: PERRLA. EOMI. Conjunctivae and sclerae clear. EARS: CANALS AND TMS CLEAR. NOSE: CLEAR. MOUTH: Moist mucosa. Good dentition. No stridor or edema. No drooling. NECK: Supple. No masses or thyromegaly. No adenopathy. Carotids 2+ without bruits. No JVD. BACK: Symmetrical without tenderness. CHEST: Respirations unlabored. Breath sounds clear and symmetrical. HEART: Regular rhythm. No murmur gallop or rub. ABDOMEN: Soft nontender without masses, organomegaly or rebound. Bowel sounds normally active. No bruits. GENITALIA: Deferred. EXTREMITIES: No edema. No calf tenderness. Cap refill less than 1.5 seconds. Dorsalis pedis and posterior tibial pulses 3+ and symmetrical. NEUROLOGICAL: GCS 15. Alert and oriented x3. Normal gait. Fluent speech. Cranial nerves II through XII intact. Sensorimotor and cerebellar normal. Normal tone. PSYCHIATRIC: Appropriate affect. Course - Re-evaluation Re-evalutation: 01/02/20 17:41 CBC and comprehensive metabolic profile are normal. Troponin is normal. Chest x-ray read as normal by the radiologist. Twelve-lead EKG is normal. 01/02/20 17:44 I am not able to establish a clear-cut etiology for patient's chronic/recurrent symptoms. I explained to him that I doubt that he has an acute COVID infection but of course encourage him to follow-up on the results of testing performed at the urgent care earlier today. In the meantime his blood pressure does not appear to be optimally controlled. I suggested that we add hydrochlorothiazide 12.5 mg daily to his current regimen. I would also be curious as to whether or not there is some type of environmental exposure with his work that might be responsible for symptoms. I suggested the environmental health clinic at [place] as a potential resource for further investigation recommended that he discuss obtaining a referral from his primary care physician. - Vital Signs Vital signs: Temp Pulse Resp BP Pulse Ox 99.1 F 64 16 165/93 H 100 01/02/20 12:42 01/02/20 12:42 01/02/20 12:42 01/02/20 12:42 01/02/20 12:42 - Laboratory Result Diagrams: 01/02/20 14:23 01/02/20 14:23 - Diagnostic Test Radiology reviewed: Reports reviewed - Normal chest x-ray per radiologist. - EKG Interpretation by Me Additional EKG results interpreted by me: 01/02/20 17:43 Twelve-lead EKG from 1240 hrs. reviewed contemporaneously by me demonstrating normal sinus rhythm with a rate of 66 and normal QRS axis of +30 degrees with normal intervals present. No acute ST/T wave changes are noted. This is compared to a prior tracing from 11/14/2016 and shows resolution of previous ventricular ectopy with no other new interval changes. Indication for current study: Dyspnea. Discharge - Discharge Clinical Impression: Chronic/recurrent fatigue, Essential hypertension Condition: Stable Disposition: HOME, SELF-CARE Additional Instructions: Follow-up on COVID testing result with your primary care provider. Follow-up for recheck of blood pressure with your primary care provider within the next 2 weeks. Discuss with your primary care physician possible need for referral to [facility] at [facility] for further evaluation of possible role of exposure to mold or toxic substances as underlying cause of your chronic recurrent symptoms. Prescriptions: Hydrochlorothiazide [Hydrodiuril 25 mg Tablet] 12.5 mg PO QAM 30 Days #30 tablet
[2020-01-02 18:23] VITALS: BP 145/100
== END 2020-01-02 18:24 | disposition home or self-care (01) ==
LOC: ER 12:35
DX: R53.83 Other fatigue (principal); I10 Essential (primary) hypertension; R07.9 Chest pain, unspecified; Z90.49 Acquired absence of other specified parts of digestive tract
CPT/HCPCS: 36415; 71045; 80053; 84484; 85025; 85610; 93005; 93010; 99285